=== PATIENT | female | born 1950 | race Caucasian/White ===

== ENCOUNTER 2017-08-13 06:04 | Day surgery (SDC) | payer MEDICARE, OTHER ==
[2017-08-13] MEDS ORDERED: DIPRIVAN 200 MG/20 ML IV ONE (06:05)
[2017-08-13] MEDS ORDERED: Ketamine HCl 50 MG/ML IV ONE (06:05)
[2017-08-13] MEDS ORDERED: Lactated Ringers 1,000 ML IV SCH (06:30)
--- NOTE | 2017-08-13 07:57 | OP ---
SURGERY DATE/TIME: 08/13/2017 0725 PREOPERATIVE DIAGNOSIS: Diarrhea. POSTOPERATIVE DIAGNOSIS: Normal colon. PROCEDURE: Colonoscopy. SURGEON: Dr. Burden. ANESTHESIA: MAC. Medications given by anesthesia department. HISTORY: The patient is a 66 year-old white female presenting now with complaints of diarrhea over the past few weeks. The patient reports that she initially thought she had the flu but it persisted beyond this. The patient has previously had a colonoscopy many years ago and recalls it as being normal. The patient was felt to need to have endoscopic evaluation at this point. She was appraised of the risks of the procedure including the risk of perforation, phlebitis, untoward reaction to medication, bleeding and missed lesions. The patient verbalized her understanding and desired to have the procedure performed. DESCRIPTION OF PROCEDURE: The patient was given the medications by the anesthesia department. She had continuous pulse oximetry, ECG monitoring, intermittent blood pressure monitoring and tidal CO2 monitoring during the examination. She was placed in the left lateral decubitus position. A digital rectal examination was performed and revealed normal anal sphincter tone and no masses. The flexible Olympus pediatric colonoscope was used to intubate the rectum. A view of the colon was developed sequentially to the cecum including a short distance into the terminal ileum. Upon insertion and withdrawal, including a retroflex view in the rectum, no mucosal lesions were encountered. The scope was then removed from the patient who tolerated the procedure well and was sent back to OP recovery in good condition. The prep was noted to be fair to good.
[2017-08-13 08:34] VITALS: BP 116/81; PULSE 51; O2SAT 95
== END 2017-08-13 08:47 | disposition home or self-care (01) ==
LOC: SDC 06:04
PROVIDERS: ATTEND Family Medicine
PROC: 0DJD8ZZ Inspection of Lower Intestinal Tract, Via Natural or Artificial Opening Endoscopic (ICD-10-PCS; principal; 2017-08-13)
DX: R19.7 Diarrhea, unspecified (principal)
CPT/HCPCS: 00810; J2704

== ENCOUNTER 2021-04-02 13:03 | Emergency (ER) | payer MEDICARE, OTHER ==
--- NOTE | 2021-04-02 13:17 | ERPHSYRPT ---
- History of Present Illness Time Seen by Provider: 04/02/21 13:15 Historian: patient Exam Limitations: no limitations Physician History: This is a 70-year-old white female who has a history of diabetes and presents with abdominal pain that is generalized in location but has the point of maximal tenderness in the left lower quadrant. She has had no nausea vomiting or diarrhea. She denies shortness of breath. She denies chest pain. She has not had any fevers or chills. Patient states she is never had anything like this before. Patient had a "clean" colonoscopy within the last few years. She has no history of diverticular disease per her report. Patient has had an appendectomy and cholecystectomy in the past. Timing/Duration: day(s) (2 days), worse Abdominal Pain Onset Location: LLQ (Point of maximal tenderness), generalized abdomen Pain Radiation: no radiation Severity of Pain-Max: moderate Severity of Pain-Current: moderate Modifying Factors: Improves With: nothing Associated Symptoms: denies symptoms Previous symptoms: no prior history Allergies/Adverse Reactions: oxytetracycline [From Terramycin] Allergy (Intermediate, Verified 04/02/21 13:22) Hives Home Medications: Clopidogrel Bisulfate 75 mg [PLAVIX 75 MG Tablet] 75 mg PO DAILY 08/09/17 [History] Losartan Potassium [Cozaar] 100 mg PO DAILY 08/09/17 [History] Metoprolol Tartrate 25 mg [Lopressor 25MG Tab] 75 mg PO BID 08/09/17 [History] Pravastatin Sodium 40 mg PO DAILY 08/09/17 [History] Alendronate Sodium 70 mg [Fosamax 70 MG] 70 mg PO Q7D@0600 04/02/21 [History] Ezetimibe 10 mg [Zetia 10 MG] 10 mg PO DAILY 04/02/21 [History] Levothyroxine Sodium [Euthyrox] 125 mcg PO DAILY 04/02/21 [History] Metformin HCl Xr 500 mg [Glucophage XR 500 MG] 500 mg PO DAILY 04/02/21 [History] Hx Tetanus, Diphtheria Vaccination/Date Given: Yes Hx Influenza Vaccination/Date Given: No Hx Pneumococcal Vaccination/Date Given: No Travel Risk - International Travel Have you traveled outside of the country in past 3 weeks: No - Coronavirus Screening Are you exhibiting any of the following symptoms?: No Close contact with a COVID-19 positive Pt in past 14-21 Days: No - Review of Systems Constitutional: No Symptoms Eyes: No Symptoms Ears, Nose, & Throat: No Symptoms Respiratory: No Symptoms Cardiac: No Symptoms Abdominal/Gastrointestinal: Abdominal Pain, No Nausea, No Vomiting, No Diarrhea Genitourinary Symptoms: No Symptoms Musculoskeletal: No Symptoms Skin: No Symptoms Neurological: No Symptoms Psychological: No Symptoms Endocrine: No Symptoms Hematologic/Lymphatic: No Symptoms Immunological/Allergic: No Symptoms All Other Systems: Reviewed and Negative - Past Medical History Pertinent Past Medical History: Yes Neurological History: Stroke ENT History: No Pertinent History Cardiac History: Aneurysm, Hypertension Respiratory History: Other Endocrine Medical History: No Pertinent History Musculoskeletal History: No Pertinent History GI Medical History: Hernia History: No Pertinent History Psycho-Social History: No Pertinent History Female Reproductive Disorders: Breast Cancer - Past Surgical History Past Surgical History: Yes Neuro Surgical History: No Pertinent History Cardiac: Cardiac Catheterization Respiratory: No Pertinent History Gastrointestinal: Appendectomy, Cholecystectomy Genitourinary: No Pertinent History Musculoskeletal: Other Female Surgical History: Mastectomy Other Surgical History: t and a, three hand surgeries - Social History Smoking Status: Never smoker Exposure to second hand smoke: No Drug Use: none Patient Lives Alone: No - Nursing Vital Signs Nursing Vital Signs: Initial Vital Signs Temperature 97.6 F 04/02/21 13:09 Pulse Rate 71 04/02/21 13:09 Blood Pressure 124/76 04/02/21 13:09 O2 Sat by Pulse Oximetry 93 L 04/02/21 13:09 Pain Scale Pain Intensity 4 - Physical Exam General Appearance: mild distress, alert, anxiety Eye Exam: PERRL/EOMI, eyes nml inspection Ears, Nose, Throat Exam: normal ENT inspection, moist mucous membranes Neck Exam: normal inspection, non-tender, supple, full range of motion Respiratory Exam: normal breath sounds, lungs clear, airway intact, No chest tenderness, No respiratory distress Cardiovascular Exam: regular rate/rhythm, normal heart sounds, normal peripheral pulses Gastrointestinal/Abdomen Exam: soft, normal bowel sounds, tenderness (Generalized. However there is point of maximal tenderness in the left lower quadrant), guarding (Left lower quadrant), No pulsatile mass Pelvic Exam: not done Rectal Exam: not done Back Exam: normal inspection, normal range of motion, No CVA tenderness, No vertebral tenderness Extremity Exam: normal inspection, normal range of motion, pelvis stable Neurologic Exam: alert, oriented x 3, cooperative, clutch mechanic II-XII nml as tested, normal mood/affect, nml cerebellar function, nml station & gait, sensation nml Skin Exam: normal color, warm, dry Lymphatic Exam: No adenopathy SpO2 Interpretation: normal O2 Delivery: Room Air - Course Nursing assessment & vital signs reviewed: Yes Ordered Tests: Active Orders 24 hr Category Date Time Status IV Insertion STAT Care 04/02/21 13:35 Active ABDOMEN AND PELVIS W/0 CONTRAS [CT] Stat Exams 04/02/21 13:39 Taken AMYLASE Stat Lab 04/02/21 13:47 Completed CBC W DIFF Stat Lab 04/02/21 13:47 Completed CMP Stat Lab 04/02/21 13:47 Completed LIPASE Stat Lab 04/02/21 13:47 Completed Lactic Acid Stat Lab 04/02/21 13:47 Completed UA W/RFX UR CULTURE Stat Lab 04/02/21 13:39 Ordered Medication Summary Discontinued Medications Generic Name Dose Route Start Last Admin Trade Name Freq PRN Reason Stop Dose Admin Hydromorphone HCl 1 mg 04/02/21 13:35 04/02/21 13:47 Hydromorphone 1 Mg/Ml Injection IV 04/02/21 13:36 1 mg STAT ONE Administration Hydromorphone HCl Confirm 04/02/21 13:46 Hydromorphone 1 Mg/Ml Injection Administered 04/02/21 13:47 Dose 1 mg .ROUTE .STK-MED ONE Ondansetron HCl 4 mg 04/02/21 13:35 04/02/21 13:47 Zofran 4 Mg/2 Ml Vial IV 04/02/21 13:36 4 mg STAT ONE Administration Ondansetron HCl Confirm 04/02/21 13:45 Zofran 4 Mg/2 Ml Vial Administered 04/02/21 13:46 Dose 4 mg .ROUTE .STK-MED ONE Lab/Rad Data: Laboratory Result Diagrams 04/02/21 13:47 04/02/21 13:47 Laboratory Results 04/02/21 04/02/21 04/02/21 Range/Units 13:47 13:47 13:47 WBC 12.1 H (4.0-10.5) K/mm3 RBC 4.54 (4.1-5.4) M/mm3 Hgb 13.6 (12.0-16.0) gm/dl Hct 41.5 (35-47) % MCV 91.4 (78-100) fl MCH 30.0 (26-32) pg MCHC 32.8 (32-36) g/dl RDW 14.0 (11.5-14.0) % Plt Count 303 (150-450) K/mm3 MPV 9.2 (7.5-11.0) fl Gran % 73.0 H (36.0-66.0) % Eos # (Auto) 0.06 (0-0.5) Absolute Lymphs (auto) 2.11 (1.0-4.6) Absolute Monos (auto) 1.06 (0.0-1.3) Lymphocytes % 17.5 L (24.0-44.0) % Monocytes % 8.8 (0.0-12.0) % Eosinophils % 0.5 (0.00-5.0) % Basophils % 0.2 (0.0-0.4) % Absolute Granulocytes 8.84 H (1.4-6.9) Basophils # 0.02 (0-0.4) Sodium 136 L (137-145) mmol/L Potassium 4.0 (3.5-5.1) mmol/L Chloride 99 (98-107) mmol/L Carbon Dioxide 29 (22-30) mmol/L Anion Gap 12.6 (5-15) MEQ/L BUN 15 (7-17) mg/dL Creatinine 0.78 (0.52-1.04) mg/dL Estimated GFR > 60.0 ML/MIN Glucose 102 (74-106) mg/dL Lactic Acid 1.1 (0.4-2.0) Calcium 9.3 (8.4-10.2) mg/dL Total Bilirubin 0.80 (0.2-1.3) mg/dL AST 28 (14-36) U/L ALT 18 (0-35) U/L Alkaline Phosphatase 62 (38-126) U/L Serum Total Protein 7.1 (6.3-8.2) g/dL Albumin 4.1 (3.5-5.0) g/dL Amylase 65 (30-110) U/L Lipase 175 (23-300) U/L - Progress Progress: improved, pain not gone completely, re-examined Progress Note: 04/02/21 15:31 CAT scan of the abdomen pelvis without contrast shows proximal sigmoid diverticulitis without evidence of perforation or abscess. Counseled pt/family regarding: lab results, diagnosis, need for follow-up, rad results - Departure Departure Disposition: Home Clinical Impression: Acute diverticulitis Condition: Stable Critical Care Time: No Referrals: RIANNA VILLATORO [Primary Care Provider] - Additional Instructions: Drink plenty of fluids. Take your medication as prescribed. Return to the emergency department if your symptoms worsen. Follow-up with your primary care physician for further management. Prescriptions: Hydrocodone/APAP 5/325 [Hull 5/325 mg] 1 each PO Q8H PRN PRN #10 tablet MDD 3 PRN Reason: Pain Ciprofloxacin [Cipro 500 MG] 500 mg PO BID #14 tablet Metronidazole 500 mg [Flagyl 500 MG] 500 mg PO TID #21 tablet
[2021-04-02] MEDS ORDERED: Zofran 4 MG/2 ML VIAL ONE (13:45)
[2021-04-02] MEDS ORDERED: Hydromorphone 1 mg/ml Injection ONE (13:46)
[2021-04-02] MEDS: Zofran 4 MG/2 ML VIAL IV ONE (13:47)
[2021-04-02] MEDS: Hydromorphone 1 mg/ml Injection IV ONE (13:47)
[2021-04-02 13:52] LABS: Absolute Neutrophil Ct (ANC) 8.84 (1.4-6.9); BASOPHIL % 0.2 % (0.0-0.4); Basophil (Absolute #) 0.02 (0-0.4); Eosinophil % 0.5 % (0.00-5.0); Eosinophil (Absolute #) 0.06 (0-0.5); Hematocrit 41.5 % (35-47); Hemoglobin 13.6 gm/dl (12.0-16.0); Lymphocyte (Absolute #) 2.11 (1.0-4.6); Lymphocytes % 17.5 % (24.0-44.0); Mean Cell Volume 91.4 fl (78-100); Mean Corpuscular Hgb Concent. 32.8 g/dl (32-36); Mean Platelet Volume 9.2 fl (7.5-11.0); Monocyte (Absolute #) 1.06 (0.0-1.3); Monocytes % 8.8 % (0.0-12.0); Platelet Count 303 K/mm3 (150-450); Red Blood Count 4.54 M/mm3 (4.1-5.4); White Blood Count 12.1 K/mm3 (4.0-10.5)
[2021-04-02 14:05] LABS: ALBUMIN 4.1 g/dL (3.5-5.0); ALKALINE PHOSPHATASE 62 U/L (38-126); AMYLASE 65 U/L (30-110); ANION GAP 12.6 MEQ/L (5-15); BLOOD UREA NITROGEN 15 mg/dL (7-17); CHLORIDE 99 mmol/L (98-107); Calcium 9.3 mg/dL (8.4-10.2); Carbon Dioxide 29 mmol/L (22-30); Creatinine 1 0.78 mg/dL (0.52-1.04); EST GLOMERULAR FILTRATION RATE > 60.0 ML/MIN; Glucose 102 mg/dL (74-106); LIPASE 175 U/L (23-300); SGOT/AST 28 U/L (14-36); SGPT/ALT 18 U/L (0-35); SODIUM 136 mmol/L (137-145); Total Protein 7.1 g/dL (6.3-8.2)
[2021-04-02] MEDS ORDERED: Levofloxacin 500 MG Tablet ONE (15:39)
[2021-04-02] MEDS ORDERED: Flagyl 500 MG ONE (15:40)
[2021-04-02] MEDS: Flagyl 500 MG PO ONE (15:42)
[2021-04-02] MEDS: Levofloxacin 500 MG Tablet PO ONE (15:43)
[2021-04-02 16:25] VITALS: BP 128/70; PULSE 70; O2SAT 98
--- NOTE | 2021-04-02 20:06 | XRAY ---
Indication: Abdomen pain. Multiple contiguous axial images obtained through the abdomen and pelvis without contrast. Comparison: None Lung bases demonstrates bibasilar dependent atelectasis/scarring, 3 mm left base calcified granuloma, and 3 mm right lower lobe subpleural noncalcified nodule probably granulomatous. No infiltrate or effusion. Heart not enlarged with tiny pericardial effusion/thickening. Noncontrasted stomach and bowel loops are nonobstructed. Previous appendectomy and cholecystectomy. Mild sigmoid diverticulosis with mild proximal sigmoid diverticulitis. No free fluid/air. 6 mm nonobstructing left renal calculus. Remaining liver, pancreas, spleen, adrenal glands, kidneys, ureters, bladder, and uterus unremarkable for noncontrast exam. Mild scattered aortoiliac calcifications without AAA. Osseous structures intact with mild degenerative changes throughout the thoracolumbar spine. Impression: 1. Sigmoid diverticulosis with mild proximal sigmoid diverticulitis. No complications. 2. Incidental nonobstructing left renal calculus, chronic bony findings, and bibasilar calcified/noncalcified granulomas. Comment: Preliminary interpretation was made by [facility]. No critical discrepancy.
== END 2021-04-02 16:26 | disposition critical access hospital (66) ==
LOC: ED 13:03
DX: K57.92 Diverticulitis of intestine, part unspecified, without perforation or abscess without bleeding (principal); I10 Essential (primary) hypertension; Z79.899 Other long term (current) drug therapy
CPT/HCPCS: 36000; 36415; 74176; 80053; 82150; 83605; 83690; 85025; 96374; 96375; 99284; J1170; J2405; A9270-GY

== ENCOUNTER 2024-09-24 11:06 | Emergency (ER) | payer MEDICARE, OTHER ==
[2024-09-24 11:20] VITALS: TEMP 97.9
[2024-09-24] MEDS ORDERED: BACIGUENT PACKET ONE (11:27)
[2024-09-24] MEDS ORDERED: Sodium Chloride 0.9% 1000 ML 1,000 ML ONE (11:46)
--- NOTE | 2024-09-24 11:46 | ERPHSYRPT ---
- History of Present Illness Time Seen by Provider: 09/24/24 11:14 Source: patient Exam Limitations: no limitations Patient Subjective Stated Complaint: Nose bleed Triage Nursing Assessment: Patient ambulated back to ED and transferred self to bed. Patient A+O X 3. Patient's skin pale, warm and dry. Patient is having active nose bleed out of junaid nares. Patient has tampon placed in left nare with blood oozing out of left nare and right nare. tampon removed with large clot coming out of left nare. Patient complains of headache 02/28. Patient states she had an appt with ENT today, but cancelled it. Physician History: 73 years old female with history of hypertension, stroke on Plavix having epistaxis off-and-on with the last 1 5 days ago, has appointment with ENT this afternoon which she canceled because she started bleeding from left side almost half an hour prior to arrival. Patient reports bright red blood and put a tampon with minimal relief. Patient reported initially blood was going back into her throat but not currently. Denies feeling dizzy lightheaded. Not taking any blood thinners. Patient has slow oozing of blood from left anterior. All the clots are removed, packed with Rhino Rocket. Will start her on Augmentin for prophylaxis. We have called her primary ENT Dr. Turner office who recommended keeping Rhino Rocket until Sunday and outpatient follow-up on Sunday morning. Plan discussed with patient and family which they understand and agree. After putting Rhino Rocket patient had some vasovagal effect with bradycardia and hypotension, feeling sweaty. She was placed in Trendelenburg position and her vitals improved. No chest pain palpitations or shortness of breath. I have checked her hemoglobin and it is 10.4 which is actually improved from previous around 9. Patient is currently asymptomatic. Discussed signs symptoms of worsening needing return to ER which she seems un derstanding. Stable for discharge. Allergies/Adverse Reactions: oxytetracycline [From Terramycin] Allergy (Intermediate, Verified 09/24/24 11:14) Hives Home Medications: Clopidogrel Bisulfate [PLAVIX Tablet] 75 mg PO DAILY 08/09/17 [History] Losartan Potassium [Cozaar] 100 mg PO DAILY 08/09/17 [History] Metoprolol Tartrate 25 mg [Lopressor 25MG Tab] 75 mg PO BID 08/09/17 [History] Pravastatin Sodium 40 mg PO DAILY 08/09/17 [History] Alendronate Sodium 70 mg [Fosamax 70 MG] 70 mg PO Q7D@0600 04/02/21 [History] Ezetimibe 10 mg [Zetia 10 MG] 10 mg PO DAILY 04/02/21 [History] Levothyroxine Sodium [Euthyrox] 125 mcg PO DAILY 04/02/21 [History] Metformin HCl Xr 500 mg [Glucophage XR 500 MG] 500 mg PO DAILY 04/02/21 [History] Hx Tetanus, Diphtheria Vaccination/Date Given: Yes Hx Influenza Vaccination/Date Given: Yes Hx Pneumococcal Vaccination/Date Given: No Immunizations Up to Date: Yes Travel Risk - International Travel Have you traveled outside of the country in past 3 weeks: No - Emerging Infectious Disease Are you exhibiting symptoms associated with any current EIDs: No - Review of Systems Constitutional: No Symptoms Eyes: No Symptoms Ears, Nose, & Throat: Nose Pain, Nose Congestion Respiratory: No Symptoms Cardiac: No Symptoms Genitourinary Symptoms: No Symptoms Skin: No Symptoms Neurological: No Symptoms Hematologic/Lymphatic: Easy Bleeding - Past Medical History Pertinent Past Medical History: Yes Neurological History: Stroke ENT History: No Pertinent History Cardiac History: Aneurysm, Hypertension Respiratory History: Other Endocrine Medical History: No Pertinent History, Thyroid Cancer Musculoskeletal History: Arthritis GI Medical History: Hernia History: No Pertinent History Psycho-Social History: No Pertinent History Female Reproductive Disorders: Breast Cancer Other Medical History: Thyroid removed due to CA. Breast CA in 1988 - Past Surgical History Past Surgical History: Yes Neuro Surgical History: No Pertinent History Cardiac: Cardiac Catheterization Respiratory: No Pertinent History Gastrointestinal: Appendectomy, Cholecystectomy Genitourinary: No Pertinent History Musculoskeletal: Other Female Surgical History: Mastectomy Other Surgical History: t and a, three hand surgeries - Social History Smoking Status: Never smoker Exposure to second hand smoke: No Drug Use: none Patient Lives Alone: No - Social Determinants of Health Will the patient participate in the screening: Yes Do you worry about a steady place to live?: No Do you have any problems with any of the following?: No known problems In the past 12 months,have you had to go without utilities?: No Transportation Issues: No Has anyone in your support network made you feel unsafe?: No Have you or anyone in your house had to go without enough: No - Nursing Vital Signs Nursing Vital Signs: Initial Vital Signs Pulse Rate 72 09/24/24 11:13 Respiratory Rate 16 09/24/24 11:13 Blood Pressure 115/84 09/24/24 11:13 O2 Sat by Pulse Oximetry 91 L 09/24/24 11:13 Pain Scale Pain Intensity 5 - Physical Exam General Appearance: no apparent distress, alert Eye Exam: bilateral eye: normal inspection, PERRL, EOMI Ear Exam: bilateral ear: auricle normal, canal normal, TM normal Nasal Exam: No normal inspection (Left nasal bleed) Throat Exam: normal, pharynx normal Neck Exam: normal inspection, supple, full range of motion Cardiovascular/Respiratory Exam: normal breath sounds, regular rate/rhythm Neurologic Exam: alert, oriented x 3, cooperative, development trainer II-XII nml as tested, normal mood/affect, nml cerebellar function, No motor deficits, No sensory deficit, No agitation Skin Exam: normal color SpO2 Interpretation: normal SpO2: 95 O2 Delivery: Room Air Procedures - Additional Procedures Progress: Nasal bleed. Time 11:30 AM. Left Rhino Rocket placement with 7 cc air injection. Bleeding improved. Ordered Tests: Active Orders 24 hr Category Date Time Status CBC W DIFF Stat Lab 09/24/24 12:26 Completed Medication Summary Discontinued Medications Generic Name Dose Route Start Last Admin Trade Name Freq PRN Reason Stop Dose Admin Bacitracin Zinc Confirm 09/24/24 11:27 Bacitracin Packet 1 Each Pckt Administered 09/24/24 11:28 Dose 1 each .ROUTE .STK-MED ONE Bacitracin Zinc 0.9 each 09/24/24 11:58 09/24/24 11:59 Bacitracin Packet 1 Each Pckt TP 09/24/24 11:59 0.9 each STAT ONE Administration Sodium Chloride Confirm 09/24/24 11:46 Sodium Chloride 0.9% 1000 Ml Administered 09/24/24 11:47 Dose 1,000 mls @ ud .ROUTE .STK-MED ONE Sodium Chloride 1,000 mls @ 999 mls/hr 09/24/24 11:58 09/24/24 12:00 Sodium Chloride 0.9% 1000 Ml IV 09/24/24 12:58 999 mls/hr .Q1H1M STA Administration Lab/Rad Data: Laboratory Result Diagrams 09/24/24 12:26 Laboratory Results 09/24/24 Range/Units 12:26 WBC 8.1 (3.98-10.04) x10^3/uL RBC 3.51 L (3.93-5.22) x10^6/uL Hgb 10.4 L (11.2-15.7) g/dL Hct 32.8 L (34.1-44.9) % MCV 93.4 (79.4-94.8) fL MCH 29.6 (25.6-32.2) pg MCHC 31.7 L (32.2-35.5) g/dL RDW 13.4 (11.7-14.4) % Plt Count 323 (182-369) x10^3/uL MPV 9.5 (9.4-12.3) fL Gran % 69.7 (34.0-71.1) % Immature Gran % (Auto) 0.2 (0.001-0.429) % Nucleat RBC Rel Count 0.0 (0.00-0.2) % Eos # (Auto) 0.09 (0.04-0.36) x10^3/uL Immature Gran # (Auto) 0.02 (0.001-0.031) x10^3u/L Absolute Lymphs (auto) 1.83 (1.18-3.74) x10^3/uL Absolute Monos (auto) 0.51 (0.24-0.86) x10^3/uL Absolute Nucleated RBC 0.00 (0.00-0.012) x10^3u/L Lymphocytes % 22.5 (19.3-51.7) % Monocytes % 6.3 (4.7-12.5) % Eosinophils % 1.1 (0.7-5.8) % Basophils % 0.2 (0.1-1.2) % Absolute Granulocytes 5.67 (1.56-6.13) x10^3/uL Basophils # 0.02 (0.01-0.08) x10^3/uL - Progress Progress: improved, re-examined Progress Note: 09/24/24 13:21 73 years old female with history of hypertension, stroke on Plavix having epistaxis off-and-on with the last 1 5 days ago, has appointment with ENT this afternoon which she canceled because she started bleeding from left side almost half an hour prior to arrival. Patient reports bright red blood and put a tampon with minimal relief. Patient reported initially blood was going back int o her throat but not currently. Denies feeling dizzy lightheaded. Not taking any blood thinners. Patient has slow oozing of blood from left anterior. All the clots are removed, packed with Rhino Rocket. Will start her on Augmentin for prophylaxis. We have called her primary ENT Dr. Turner office who recommended keeping Rhino Rocket until Sunday and outpatient follow-up on Sunday morning. Plan discussed with patient and family which they understand and agree. After putting Rhino Rocket patient had some vasovagal effect with bradycardia and hypotension, feeling sweaty. She was placed in Trendelenburg position and her vitals improved. No chest pain palpitations or shortness of breath. I have checked her hemoglobin and it is 10.4 which is actually improved from previous around 9. Patient is currently asymptomatic. Discussed signs symptoms of worsening needing return to ER which she seems understanding. Stable for discharge. Counseled pt/family regarding: diagnosis, need for follow-up Medical Desision Making - Discussion of managment Care discussed with:: specialist (Dr. Salamanca ENT) Reviewed:: Test results Agreed on:: Treatment plan, need for follow-up Will see patient: In office - Diagnostic Testing Diagnostic test were ordered, analyzed, and reviewed by me: No - Risk of complications The pt has a mod risk of morbidity or mortality based on: Need for minor surgical intervention in patient with know risk factors - Departure Departure Disposition: Home Clinical Impression: Left-sided epistaxis, Vasovagal episode Condition: Stable Critical Care Time: No Referrals: RIANNA VILLATORO [Primary Care Provider] - Follow up with PCP 1 day GINNA SALAMNACA MD [NON-STAFF PHY W/O PRIVILEGES] - Follow up/PCP as directed (On Sunday for reevaluation) Instructions: Nosebleeds (DC), Vasovagal Response Additional Instructions: Monitor your blood pressure regularly. Follow-up with ENT for reevaluation. Return to ER for worsening of pain, bleeding, intractable headache, numbness tingling focal weakness, feeling dizzy lightheaded, chest pain/shortness of breath etc. Prescriptions: Amox Tr/Potass Clav. 875 mg [Augmentin 875-125 Tablet] 875 mg PO BID 5 Days #10 tablet
[2024-09-24] MEDS: BACIGUENT PACKET TP ONE (11:59)
[2024-09-24] MEDS: Sodium Chloride 0.9% 1000 ML 1,000 ML IV STA (12:00)
[2024-09-24 12:27] LABS: Absolute Neutrophil Ct (ANC) 5.67 x10^3/uL (1.56-6.13); BASOPHIL % 0.2 % (0.1-1.2); Basophil (Absolute #) 0.02 x10^3/uL (0.01-0.08); Eosinophil % 1.1 % (0.7-5.8); Eosinophil (Absolute #) 0.09 x10^3/uL (0.04-0.36); Hematocrit 32.8 % (34.1-44.9); Hemoglobin 10.4 g/dL (11.2-15.7); IMMATURE GRAN # 0.02 x10^3u/L (0.001-0.031); IMMATURE GRAN % 0.2 % (0.001-0.429); Lymphocyte (Absolute #) 1.83 x10^3/uL (1.18-3.74); Lymphocytes % 22.5 % (19.3-51.7); Mean Cell Volume 93.4 fL (79.4-94.8); Mean Corpuscular Hemoglobin 29.6 pg (25.6-32.2); Mean Corpuscular Hgb Concent. 31.7 g/dL (32.2-35.5); Mean Platelet Volume 9.5 fL (9.4-12.3); Monocyte (Absolute #) 0.51 x10^3/uL (0.24-0.86); Monocytes % 6.3 % (4.7-12.5); Neutrophil % 69.7 % (34.0-71.1); Platelet Count 323 x10^3/uL (182-369); Red Blood Count 3.51 x10^6/uL (3.93-5.22); Red Cell Distribution Width 13.4 % (11.7-14.4); White Blood Count 8.1 x10^3/uL (3.98-10.04)
[2024-09-24 12:50] VITALS: RESP 18
[2024-09-24 13:39] VITALS: BP 104/64; PULSE 72; O2SAT 96
== END 2024-09-24 13:47 | disposition home or self-care (01) ==
LOC: ED 11:06
DX: R04.0 Epistaxis (principal); R51.9 Headache, unspecified; Z79.01 Long term (current) use of anticoagulants; R55 Syncope and collapse
CPT/HCPCS: 36415; 85025; 96360; 99284; A9270-GY

== ENCOUNTER 2024-09-26 13:15 | Observation (INO) | payer MEDICARE, OTHER ==
--- NOTE | 2024-09-26 13:21 | ERPHSYRPT ---
- History of Present Illness Source: patient, family Exam Limitations: no limitations Timing/Duration: today Severity: mild Associated Symptoms: shortness of breath, chest pain (Mild ache substernal central without radiation) Hx Tetanus, Diphtheria Vaccination/Date Given: Yes Hx Influenza Vaccination/Date Given: Yes Hx Pneumococcal Vaccination/Date Given: No <HANK BAXTER - Last Filed: 09/26/24 19:17> <HECTOR BOSS - Last Filed: 09/27/24 06:18> - History of Present Illness Time Seen by Provider: 09/26/24 13:21 Physician History: This is a 73-year-old overweight white female patient of Dr. Burden who presents to the emergency department by private vehicle with a complaint of low blood pressure and mild shortness of breath. Patient was seen in our emergency department on 09/24/2024 with a complaint of epistaxis and she has a Rhino Rocket in the left nostril. Since its placement, she has not had any further bleeding. She has no hemoptysis, hematemesis, rectal bleeding, vaginal bleeding or epistaxis. She continues to take her Plavix as she states no one told her to stop it. She has a history of hyperlipidemia, hypertension, diabetes, hypothyroidism, osteoporosis and CVA. Patient was orthostatic on arrival to the emergency department. Patient has had no vomiting no diarrhea symptoms and has no abdominal pain. Patient has an appointment to see her associate research scientist, Dr. Turner, on 09/29/2024. It is documented, in the emergency room note here at [facility] on 09/24/2024, that when the Rhino Rocket was placed, patient appeared to have a vasovagal response. (HANK BAXTER) Allergies/Adverse Reactions: oxytetracycline [From Terramycin] Allergy (Intermediate, Verified 09/24/24 11:14 ) Hives Home Medications: Clopidogrel Bisulfate [PLAVIX Tablet] 75 mg PO DAILY 08/09/17 [History] Losartan Potassium [Cozaar] 100 mg PO DAILY 08/09/17 [History] Metoprolol Tartrate 25 mg [Lopressor 25MG Tab] 50 mg PO BID 08/09/17 [History] Alendronate Sodium 70 mg [Fosamax 70 MG] 70 mg PO Q7D@0600 04/02/21 [History] Ezetimibe 10 mg [Zetia 10 MG] 10 mg PO DAILY 04/02/21 [History] Atorvastatin Calcium [Lipitor] 20 mg PO DAILY 09/26/24 [History] Citalopram Hydrobromide [Celexa] 10 mg PO DAILY 09/26/24 [History] Ergocalciferol (Vitamin D2) [Vitamin D2] 1,250 mcg PO UD 09/26/24 [History] Ferrous Sulfate [Iron] 325 mg PO DAILY 09/26/24 [History] Furosemide 40 mg [Lasix 40 MG] 40 mg PO DAILY 09/26/24 [History] Levothyroxine Sodium [Synthroid] 163 mcg PO BREAKFAST 09/26/24 [History] Trazodone HCl 50 mg [Desyrel 50 mg] 50 mg PO DAILY PRN 09/26/24 [History] Travel Risk - International Travel Have you traveled outside of the country in past 3 weeks: No - Emerging Infectious Disease Are you exhibiting symptoms associated with any current EIDs: No <HANK BAXTER - Last Filed: 09/26/24 19:17> - Review of Systems Constitutional: No Symptoms Eyes: No Symptoms Ears, Nose, & Throat: No Symptoms Respiratory: Dyspnea Cardiac: Chest Pain Abdominal/Gastrointestinal: No Symptoms Genitourinary Symptoms: No Symptoms Musculoskeletal: No Symptoms Skin: No Symptoms Neurological: No Symptoms Psychological: No Symptoms Endocrine: No Symptoms Hematologic/Lymphatic: No Symptoms Immunological/Allergic: No Symptoms All Other Systems: Reviewed and Negative <HANK BAXTER - Last Filed: 09/26/24 19:17> - Past Medical History Pertinent Past Medical History: Yes Neurological History: Stroke ENT History: No Pertinent History Cardiac History: Aneurysm, Hypertension Respiratory History: Other Endocrine Medical History: No Pertinent History, Thyroid Cancer Musculoskeletal History: Arthritis GI Medical History: Hernia History: No Pertinent History Psycho-Social History: No Pertinent History Female Reproductive Disorders: Breast Cancer Other Medical History: Thyroid removed due to CA. Breast CA in 1988 - Past Surgical History Past Surgical History: Yes Neuro Surgical History: No Pertinent History Cardiac: Cardiac Catheterization Respiratory: No Pertinent History Gastrointestinal: Appendectomy, Cholecystectomy Genitourinary: No Pertinent History Musculoskeletal: Other Female Surgical History: Mastectomy Other Surgical History: t and a, three hand surgeries - Social History Smoking Status: Never smoker Exposure to second hand smoke: No Drug Use: none Patient Lives Alone: No - Social Determinants of Health Will the patient participate in the screening: Yes Do you worry about a steady place to live?: No In the past 12 months,have you had to go without utilities?: No Transportation Issues: No Has anyone in your support network made you feel unsafe?: No Have you or anyone in your house had to go without enough: No <HANK BAXTER - Last Filed: 09/26/24 19:17> - Physical Exam General Appearance: no apparent distress, alert, anxiety, obese Eye Exam: PERRL/EOMI, eyes nml inspection Ears, Nose, Throat Exam: normal ENT inspection, moist mucous membranes, other (Rhino Rocket in place left nostril. No active bleeding.) Neck Exam: normal inspection Respiratory Exam: normal breath sounds, lungs clear, airway intact, No chest tenderness, No respiratory distress Cardiovascular Exam: tachycardia Gastrointestinal/Abdomen Exam: soft, normal bowel sounds, No tenderness Pelvic Exam: not done Rectal Exam: not done Back Exam: normal inspection, normal range of motion, No CVA tenderness, No vertebral tenderness Extremity Exam: normal inspection, normal range of motion, pelvis stable Neurologic Exam: alert, oriented x 3, cooperative, recreational facilities motel manager II-XII nml as tested, nml cerebellar function, nml station & gait, sensation nml Skin Exam: normal color, warm, dry Lymphatic Exam: No adenopathy SpO2 Interpretation: normal O2 Delivery: Room Air <HANK BAXTER - Last Filed: 09/26/24 19:17> - Nursing Vital Signs Nursing Vital Signs: Initial Vital Signs Temperature 98.1 F 09/26/24 13:20 Pulse Rate 121 H 09/26/24 13:20 Respiratory Rate 23 09/26/24 13:20 Blood Pressure 149/72 09/26/24 13:20 O2 Sat by Pulse Oximetry 99 09/26/24 13:20 Pain Scale Pain Intensity 0 - Course Nursing assessment & vital signs reviewed: Yes EKG Interpreted by Me: RATE, Sinus Tach, NORMAL AXIS, NORMAL INTERVALS, NORMAL QRS, Other (No acute ischemia. QTc is 472) <HANK BAXTER - Last Filed: 09/26/24 19:17> Ordered Tests: Active Orders 24 hr Category Date Time Status Call Admit Doctor for Orders ON ADMISSION Care 09/26/24 21:50 Active Manufacturing Machine Operator STAT Care 09/26/24 13:55 Completed Code Status Order ROUTINE Care 09/26/24 21:50 Active EKG-ER Only STAT Care 09/26/24 13:55 Completed Fall Protocol Q1H Care 09/26/24 21:50 Active IV Insertion STAT Care 09/26/24 13:[address] in Observation ROUTINE Care 09/26/24 21:50 Active Pulse Oximetry (ED) STAT Care 09/26/24 13:55 Completed Telemetry q6h Care 09/26/24 21:50 Active House Regular Diet Diet 09/27/24 Breakfast Active CBC W DIFF Stat Lab 09/26/24 14:00 Completed CBC W DIFF Stat Lab 09/26/24 19:55 Completed CMP Stat Lab 09/26/24 14:00 Completed MAGNESIUM Stat Lab 09/26/24 14:00 Completed NT PRO BNPII Stat Lab 09/26/24 14:00 Completed PROTIME WITH INR Stat Lab 09/26/24 14:00 Completed TROPONIN Q4H Lab 09/26/24 14:00 Completed TROPONIN Q4H Lab 09/26/24 16:48 Completed TROPONIN Q4H Lab 09/26/24 23:25 Completed UA W/RFX UR CULTURE Stat Lab 09/26/24 16:16 Completed Medication Summary Generic Name Dose Route Start Last Admin Trade Name Freq PRN Reason Stop Dose Admin Acetaminophen 650 mg 09/27/24 00:56 Acetaminophen 325 Mg Tablet PO 10/27/24 00:55 Q6H PRN PRN PAIN AND/OR FEVER Clopidogrel Bisulfate 75 mg 09/27/24 10:00 Clopidogrel Bisulfate 75 Mg Tablet PO 10/27/24 09:59 DAILY GERHARD Ezetimibe 10 mg 09/27/24 10:00 Ezetimibe 10 Mg Tab PO 10/27/24 09:59 DAILY GERHARD Ergocalciferol unit 09/27/24 01:00 Ergocalciferol (Vitamin D2) 50,000 Unit Capsule PO 10/27/24 00:59 UD GERHARD Sodium Chloride 1,000 mls @ 100 mls/hr 09/27/24 01:00 09/27/24 03:18 Sodium Chloride 0.9% 1000 Ml IV 10/27/24 00:59 100 mls/hr .Q10H GERHARD Administration Metoprolol Tartrate 50 mg 09/27/24 10:00 Metoprolol Tartrate 25 Mg Tab PO 10/27/24 09:59 BID GERHARD Non-Formulary Medication 10 mg 09/27/24 10:00 Citalopram Hydrobromide [Celexa] PO 10/27/24 09:59 DAILY GERHARD Non-Formulary Medication 20 mg 09/27/24 10:00 Atorvastatin Calcium [Lipitor] PO 10/27/24 09:59 DAILY GERHARD Non-Formulary Medication 163 mcg 09/27/24 08:00 Levothyroxine Sodium [Synthroid] PO 10/27/24 07:59 BREAKFAST GERHARD Trazodone HCl 50 mg 09/27/24 00:55 Trazodone Hcl 50 Mg Tablet PO 10/27/24 00:54 DAILY PRN PAIN Discontinued Medications Generic Name Dose Route Start Last Admin Trade Name Freq PRN Reason Stop Dose Admin Sodium Chloride 250 mls @ 250 mls/hr 09/26/24 14:00 09/26/24 15:09 Sodium Chloride 0.9% 250 Ml IV 09/26/24 14:59 Infused .Q1H GERHARD Infusion Sodium Chloride 250 mls @ 250 mls/hr 09/26/24 15:45 09/26/24 17:08 Sodium Chloride 0.9% 250 Ml IV 09/26/24 16:44 Infused .Q1H GERHARD Infusion Sodium Chloride 1,000 mls @ 999 mls/hr 09/26/24 17:29 09/26/24 18:53 Sodium Chloride 0.9% 1000 Ml IV 09/26/24 18:29 Infused .Q1H1M STA Infusion Sodium Chloride Confirm 09/26/24 17:33 Sodium Chloride 0.9% 1000 Ml Administered 09/26/24 17:34 Dose 1,000 mls @ ud .ROUTE .STK-MED ONE Sodium Chloride Confirm 09/26/24 14:00 Sodium Chloride 0.9% 250 Ml Administered 09/26/24 14:01 Dose 250 mls @ ud IV .STK-MED ONE Sodium Chloride Confirm 09/26/24 15:52 Sodium Chloride 0.9% 250 Ml Administered 09/26/24 15:53 Dose 250 mls @ ud IV .STK-MED ONE Potassium Chloride 20 meq 09/26/24 15:37 09/26/24 15:56 Potassium Chloride Tab 10 Meq Tab PO 09/26/24 15:38 20 meq STAT ONE Administration Potassium Chloride Confirm 09/26/24 15:40 Potassium Chloride Tab 10 Meq Tab Administered 09/26/24 15:41 Dose 20 meq .ROUTE .STK-MED ONE Lab/Rad Data: Laboratory Result Diagrams 09/26/24 19:55 09/26/24 14:00 Laboratory Results 09/26/24 09/26/24 09/26/24 Range/Units 19:55 16:48 16:16 WBC 9.5 (3.98-10.04) x10^3/uL RBC 2.89 L (3.93-5.22) x10^6/uL Hgb 8.6 L (11.2-15.7) g/dL Hct 26.5 L (34.1-44.9) % MCV 91.7 (79.4-94.8) fL MCH 29.8 (25.6-32.2) pg MCHC 32.5 (32.2-35.5) g/dL RDW 14.1 (11.7-14.4) % Plt Count 261 (182-369) x10^3/uL MPV 9.3 L (9.4-12.3) fL Gran % 67.8 (34.0-71.1) % Immature Gran % (Auto) 0.3 (0.001-0.429) % Nucleat RBC Rel Count 0.0 (0.00-0.2) % Eos # (Auto) 0.10 (0.04-0.36) x10^3/uL Immature Gran # (Auto) 0.03 (0.001-0.031) x10^3u/L Absolute Lymphs (auto) 2.29 (1.18-3.74) x10^3/uL Absolute Monos (auto) 0.60 (0.24-0.86) x10^3/uL Absolute Nucleated RBC 0.00 (0.00-0.012) x10^3u/L Lymphocytes % 24.2 (19.3-51.7) % Monocytes % 6.3 (4.7-12.5) % Eosinophils % 1.1 (0.7-5.8) % Basophils % 0.3 (0.1-1.2) % Absolute Granulocytes 6.41 H (1.56-6.13) x10^3/uL Basophils # 0.03 (0.01-0.08) x10^3/uL PT (9.4-12.5) SECONDS INR (0.8-3.0) Sodium (135-145) mmol/L Potassium (3.5-5.1) mmol/L Chloride (98-107) mmol/L Carbon Dioxide (22-30) mmol/L Anion Gap (5-15) MEQ/L BUN (7-17) mg/dL Creatinine (0.52-1.04) mg/dL Estimated GFR ML/MIN Glucose (74-106) mg/dL Calcium (8.4-10.2) mg/dL Magnesium (1.6-2.3) mg/dL Total Bilirubin (0.2-1.3) mg/dL AST (14-36) U/L ALT (0-35) U/L Alkaline Phosphatase (38-126) U/L Troponin I 0.013 (0.000-0.033) ng/mL NT-Pro-B Natriuret Pep (<300) pg/mL Serum Total Protein (6.3-8.2) g/dL Albumin (3.5-5.0) g/dL Urine Color Yellow (Yellow) Urine Appearance Clear (Clear) Urine pH 7.0 (4.6-8.0) Ur Specific [place] 1.015 (1.005-1.030) Urine Protein Negative (Negative) Urine Glucose (UA) Negative (Negative) mg/dL Urine Ketones Negative (Negative) Urine Blood Negative (Negative) Urine Nitrite Negative (Negative) Urine Bilirubin Negative (Negative) Urine Urobilinogen 0.2 (0.2) mg/dL Ur Leukocyte Esterase Negative (Negative) U Hyaline Cast (Auto) NONE SEEN (0-2) /LPF Urine Microscopic RBC 0-2 (0-5) /HPF Urine Microscopic WBC 0-2 (0-5) /HPF Ur Epithelial Cells None Seen (None Seen) /HPF Urine Bacteria None Seen (None Seen) /HPF Urine Culture Reflexed NO (NO) 09/26/24 09/26/24 09/26/24 Range/Units 14:00 14:00 14:00 WBC (3.98-10.04) x10^3/uL RBC (3.93-5.22) x10^6/uL Hgb (11.2-15.7) g/dL Hct (34.1-44.9) % MCV (79.4-94.8) fL MCH (25.6-32.2) pg MCHC (32.2-35.5) g/dL RDW (11.7-14.4) % Plt Count (182-369) x10^3/uL MPV (9.4-12.3) fL Gran % (34.0-71.1) % Immature Gran % (Auto) (0.001-0.429) % Nucleat RBC Rel Count (0.00-0.2) % Eos # (Auto) (0.04-0.36) x10^3/uL Immature Gran # (Auto) (0.001-0.031) x10^3u/L Absolute Lymphs (auto) (1.18-3.74) x10^3/uL Absolute Monos (auto) (0.24-0.86) x10^3/uL Absolute Nucleated RBC (0.00-0.012) x10^3u/L Lymphocytes % (19.3-51.7) % Monocytes % (4.7-12.5) % Eosinophils % (0.7-5.8) % Basophils % (0.1-1.2) % Absolute Granulocytes (1.56-6.13) x10^3/uL Basophils # (0.01-0.08) x10^3/uL PT 10.6 (9.4-12.5) SECONDS INR 0.97 (0.8-3.0) Sodium 140 (135-145) mmol/L Potassium 3.3 L (3.5-5.1) mmol/L Chloride 102 (98-107) mmol/L Carbon Dioxide 30 (22-30) mmol/L Anion Gap 11.0 (5-15) MEQ/L BUN 19 H (7-17) mg/dL Creatinine 0.94 (0.52-1.04) mg/dL Estimated GFR 64.1 ML/MIN Glucose 91 (74-106) mg/dL Calcium 9.2 (8.4-10.2) mg/dL Magnesium 1.6 (1.6-2.3) mg/dL Total Bilirubin 0.30 (0.2-1.3) mg/dL AST 37 H (14-36) U/L ALT 22 (0-35) U/L Alkaline Phosphatase 56 (38-126) U/L Troponin I 0.014 (0.000-0.033) ng/mL NT-Pro-B Natriuret Pep 203 (<300) pg/mL Serum Total Protein 6.5 (6.3-8.2) g/dL Albumin 3.8 (3.5-5.0) g/dL Urine Color (Yellow) Urine Appearance (Clear) Urine pH (4.6-8.0) Ur Specific [place] (1.005-1.030) Urine Protein (Negative) Urine Glucose (UA) (Negative) mg/dL Urine Ketones (Negative) Urine Blood (Negative) Urine Nitrite (Negative) Urine Bilirubin (Negative) Urine Urobilinogen (0.2) mg/dL Ur Leukocyte Esterase (Negative) U Hyaline Cast (Auto) (0-2) /LPF Urine Microscopic RBC (0-5) /HPF Urine Microscopic WBC (0-5) /HPF Ur Epithelial Cells (None Seen) /HPF Urine Bacteria (None Seen) /HPF Urine Culture Reflexed (NO) 09/26/24 Range/Units 14:00 WBC 8.7 (3.98-10.04) x10^3/uL RBC 3.19 L (3.93-5.22) x10^6/uL Hgb 9.4 L (11.2-15.7) g/dL Hct 29.4 L (34.1-44.9) % MCV 92.2 (79.4-94.8) fL MCH 29.5 (25.6-32.2) pg MCHC 32.0 L (32.2-35.5) g/dL RDW 13.8 (11.7-14.4) % Plt Count 293 (182-369) x10^3/uL MPV 9.3 L (9.4-12.3) fL Gran % 69.6 (34.0-71.1) % Immature Gran % (Auto) 0.5 H (0.001-0.429) % Nucleat RBC Rel Count 0.0 (0.00-0.2) % Eos # (Auto) 0.07 (0.04-0.36) x10^3/uL Immature Gran # (Auto) 0.04 H (0.001-0.031) x10^3u/L Absolute Lymphs (auto) 1.84 (1.18-3.74) x10^3/uL Absolute Monos (auto) 0.67 (0.24-0.86) x10^3/uL Absolute Nucleated RBC 0.00 (0.00-0.012) x10^3u/L Lymphocytes % 21.1 (19.3-51.7) % Monocytes % 7.7 (4.7-12.5) % Eosinophils % 0.8 (0.7-5.8) % Basophils % 0.3 (0.1-1.2) % Absolute Granulocytes 6.06 (1.56-6.13) x10^3/uL Basophils # 0.03 (0.01-0.08) x10^3/uL PT (9.4-12.5) SECONDS INR (0.8-3.0) Sodium (135-145) mmol/L Potassium (3.5-5.1) mmol/L Chloride (98-107) mmol/L Carbon Dioxide (22-30) mmol/L Anion Gap (5-15) MEQ/L BUN (7-17) mg/dL Creatinine (0.52-1.04) mg/dL Estimated GFR ML/MIN Glucose (74-106) mg/dL Calcium (8.4-10.2) mg/dL Magnesium (1.6-2.3) mg/dL Total Bilirubin (0.2-1.3) mg/dL AST (14-36) U/L ALT (0-35) U/L Alkaline Phosphatase (38-126) U/L Troponin I (0.000-0.033) ng/mL NT-Pro-B Natriuret Pep (<300) pg/mL Serum Total Protein (6.3-8.2) g/dL Albumin (3.5-5.0) g/dL Urine Color (Yellow) Urine Appearance (Clear) Urine pH (4.6-8.0) Ur Specific [place] (1.005-1.030) Urine Protein (Negative) Urine Glucose (UA) (Negative) mg/dL Urine Ketones (Negative) Urine Blood (Negative) Urine Nitrite (Negative) Urine Bilirubin (Negative) Urine Urobilinogen (0.2) mg/dL Ur Leukocyte Esterase (Negative) U Hyaline Cast (Auto) (0-2) /LPF Urine Microscopic RBC (0-5) /HPF Urine Microscopic WBC (0-5) /HPF Ur Epithelial Cells (None Seen) /HPF Urine Bacteria (None Seen) /HPF Urine Culture Reflexed (NO) - Progress Progress: improved, re-examined Counseled pt/family regarding: lab results, diagnosis <HANK BAXTER - Last Filed: 09/26/24 19:17> - Progress Will see patient in: hospital (observation) <HECTOR BOSS - Last Filed: 09/27/24 06:18> - Progress Progress Note: 09/26/24 14:06 My medical decision making and the assignment of moderate complexity to this patient's medical issue today is based on review of the patient's past medical history, review of the patient's medication list, reviewed patient drug allergy list, history present illness and physical findings on examination. The workup in this patient includes placement of an intravenous line, CBC, CMP, PT/INR, twelve-lead EKG, troponin level. Differential diagnosis includes but is not limited to anemia, vasovagal response, dehydration, myocardial infarction, arrhythmias, electrolyte abnormalities 09/26/24 17:27 I interpreted the second twelve-lead EKG that was performed on 09/26/2024 at 1707. Heart rate is 102 bpm. There is no evidence of any acute ischemia. QTc is 458. Slightly improved heart rate compared to the prior twelve-lead EKG performed earlier in this visit. 09/26/24 17:30 Patient's repeat orthostatic vital signs, she still test positive. We have only provided her with 500 mL of normal saline solution. We will provide her with a liter of solution and repeat CBC after the liter has infused. 09/26/24 19:17 I am transferring care of this patient to Dr. Boss at shift change. I reviewed the patient history, workup results and there are pending studies after most recent intervention. He will follow-up on the studies and reevaluate the patient and make final disposition. (HANK BAXTER) Assumed care from Dr. Baxter at 1900 with CBC pending at 1930. Hb decreased from 9.4 to 8.6. Her previous Hb baseline in March was over 13, in the setting of decreasing Hb, recent epistaxis with rhinorocket placement and hypotension observation is warranted at this time. Discussed case with Dr. Freeman who accepts at 2033. (HECTOR BOSS) Medical Desision Making - Independent Historian Additional History obtained from: Family - Risk of complications Low Risk: Low risk of morbidity from additional dx testing or treatment <HANK BAXTER - Last Filed: 09/26/24 19:17> - Diagnostic Testing Diagnostic test were ordered, analyzed, and reviewed by me: Yes Radiological Interpretation: Interpreted by me - Risk of complications The pt has a high risk of morbidity or mortality based on: Decision regarding hospitilization or escalation of hosp level of care <HECTOR BOSS - Last Filed: 09/27/24 06:18> - Departure Departure Disposition: Observation Critical Care Time: No <HANK BAXTER - Last Filed: 09/26/24 19:17> - Departure Departure Disposition: Observation <HECTOR BOSS - Last Filed: 09/27/24 06:18> - Departure Clinical Impression: Anemia, Hypotension Condition: Fair
[2024-09-26] MEDS ORDERED: Sodium Chloride 0.9% 250 ML 250 ML IV ONE ×2 (14:00→15:52)
[2024-09-26 14:01] LABS: Absolute Neutrophil Ct (ANC) 6.06 x10^3/uL (1.56-6.13); BASOPHIL % 0.3 % (0.1-1.2); Basophil (Absolute #) 0.03 x10^3/uL (0.01-0.08); Eosinophil % 0.8 % (0.7-5.8); Eosinophil (Absolute #) 0.07 x10^3/uL (0.04-0.36); Hematocrit 29.4 % (34.1-44.9); Hemoglobin 9.4 g/dL (11.2-15.7); IMMATURE GRAN # 0.04 x10^3u/L (0.001-0.031); IMMATURE GRAN % 0.5 % (0.001-0.429); Lymphocyte (Absolute #) 1.84 x10^3/uL (1.18-3.74); Lymphocytes % 21.1 % (19.3-51.7); Mean Cell Volume 92.2 fL (79.4-94.8); Mean Corpuscular Hemoglobin 29.5 pg (25.6-32.2); Mean Platelet Volume 9.3 fL (9.4-12.3); Monocyte (Absolute #) 0.67 x10^3/uL (0.24-0.86); Monocytes % 7.7 % (4.7-12.5); Neutrophil % 69.6 % (34.0-71.1); Platelet Count 293 x10^3/uL (182-369); Red Blood Count 3.19 x10^6/uL (3.93-5.22); Red Cell Distribution Width 13.8 % (11.7-14.4); White Blood Count 8.7 x10^3/uL (3.98-10.04)
[2024-09-26] MEDS: Sodium Chloride 0.9% 250 ML 250 ML IV SCH ×2 (14:01→15:56)
[2024-09-26 14:14] LABS: ALBUMIN 3.8 g/dL (3.5-5.0); BILIRUBIN,TOTAL 0.3 mg/dL (0.2-1.3); Calcium 9.2 mg/dL (8.4-10.2); Creatinine 1 0.94 mg/dL (0.52-1.04); EST GLOMERULAR FILTRATION RATE 64.1 ML/MIN; MAGNESIUM 1.6 mg/dL (1.6-2.3); Potassium 3.3 mmol/L (3.5-5.1); Total Protein 6.5 g/dL (6.3-8.2)
[2024-09-26 14:16] LABS: INR 0.97 (0.8-3.0); PROTIME 10.6 SECONDS (9.4-12.5)
[2024-09-26 14:28] LABS: TROPONIN 0.014 ng/mL (0.000-0.033)
[2024-09-26] MEDS ORDERED: Klor Con ONE (15:40)
[2024-09-26] MEDS: Klor Con PO ONE (15:56)
[2024-09-26 16:40] LABS: Appearance Clear (Clear); Bacteria None Seen /HPF (None Seen); Bilirubin Negative (Negative); Blood Negative (Negative); Epithelial Cells None Seen /HPF (None Seen); Glucose, Urine Negative (Negative); Hyaline Casts NONE SEEN /LPF (0-2); Ketones Negative (Negative); Leukocyte Esterase Negative (Negative); Nitrite Negative (Negative); Protein,Urine Dip Negative (Negative); RBC 0-2 /HPF (0-5); Specific Gravity 1.015 (1.005-1.030); Urobilinogen 0.2 mg/dL (0.2); WBC 0-2 /HPF (0-5)
[2024-09-26] MEDS ORDERED: Sodium Chloride 0.9% 1000 ML 1,000 ML ONE (17:33)
[2024-09-26] MEDS: Sodium Chloride 0.9% 1000 ML 1,000 ML IV STA (17:34)
[2024-09-26 19:57] LABS: Absolute Neutrophil Ct (ANC) 6.41 x10^3/uL (1.56-6.13); BASOPHIL % 0.3 % (0.1-1.2); Basophil (Absolute #) 0.03 x10^3/uL (0.01-0.08); Eosinophil % 1.1 % (0.7-5.8); Hematocrit 26.5 % (34.1-44.9); Hemoglobin 8.6 g/dL (11.2-15.7); IMMATURE GRAN # 0.03 x10^3u/L (0.001-0.031); IMMATURE GRAN % 0.3 % (0.001-0.429); Lymphocyte (Absolute #) 2.29 x10^3/uL (1.18-3.74); Lymphocytes % 24.2 % (19.3-51.7); Mean Cell Volume 91.7 fL (79.4-94.8); Mean Corpuscular Hemoglobin 29.8 pg (25.6-32.2); Mean Corpuscular Hgb Concent. 32.5 g/dL (32.2-35.5); Mean Platelet Volume 9.3 fL (9.4-12.3); Monocytes % 6.3 % (4.7-12.5); Neutrophil % 67.8 % (34.0-71.1); Platelet Count 261 x10^3/uL (182-369); Red Blood Count 2.89 x10^6/uL (3.93-5.22); Red Cell Distribution Width 14.1 % (11.7-14.4); White Blood Count 9.5 x10^3/uL (3.98-10.04)
[2024-09-27] MEDS ORDERED: DESYREL 50 MG PO PRN (00:55)
[2024-09-27] MEDS ORDERED: TYLENOL 325 MG PO PRN (00:56)
--- NOTE | 2024-09-27 01:07 | PCM.HP ---
History of Present Illness - Chief Complaint Chief Complaint: dizziness Date: 09/26/24 History of Present Illness: is a 73 year old female with history of postsurgical hypothyroidism, stroke, hypertension, who presents with dizziness and hypotension. Patient had presented 2 days earlier to the ED with persistent epistaxis, requiring Rhino Rocket. At time of placement, patient had episode of hypotension that quickly resolved. She was cautioned to closely monitor her blood pressure at home. She denies any further epistaxis, as well as any hematemesis since leaving the ED. However, today she noted that her blood pressure was lower, and she was dizzy, and particularly upon standing. On arrival to the ED, her BP on standing was 77/48. She was given 2 L IV fluids, and now has had normalization of her blood pressure. She notes that she still has some dizziness when she stands up to walk to the bathroom. She states that she is been eating well for the past few days, and denies any vomiting or diarrhea. No recent changes to her medications. No melena or hematochezia. - Review of Systems All Other Systems: Reviewed and Negative Medications & Allergies Home Medications: Home Medication List Clopidogrel Bisulfate [PLAVIX Tablet] 75 mg PO DAILY 08/09/17 [History Confirmed 09/26/24] Losartan Potassium [Cozaar] 100 mg PO DAILY 08/09/17 [History Confirmed 09/26/24] Metoprolol Tartrate 25 mg [Lopressor 25MG Tab] 50 mg PO BID 08/09/17 [History Confirmed 09/26/24] Alendronate Sodium 70 mg [Fosamax 70 MG] 70 mg PO Q7D@0600 04/02/21 [History Confirmed 09/26/24] Ezetimibe 10 mg [Zetia 10 MG] 10 mg PO DAILY 04/02/21 [History Confirmed 09/26/24] Amox Tr/Potass Clav. 875 mg [Augmentin 875-125 Tablet] 875 mg PO BID 5 Days #10 tablet 09/24/24 [Rx Confirmed 09/26/24] Atorvastatin Calcium [Lipitor] 20 mg PO DAILY 09/26/24 [History Confirmed 09/26/24] Citalopram Hydrobromide [Celexa] 10 mg PO DAILY 09/26/24 [History Confirmed 09/26/24] Ergocalciferol (Vitamin D2) [Vitamin D2] 1,250 mcg PO UD 09/26/24 [History Confirmed 09/26/24] Ferrous Sulfate [Iron] 325 mg PO DAILY 09/26/24 [History Confirmed 09/26/24] Furosemide 40 mg [Lasix 40 MG] 40 mg PO DAILY 09/26/24 [History Confirmed 09/26/24] Levothyroxine Sodium [Synthroid] 163 mcg PO BREAKFAST 09/26/24 [History Confirmed 09/26/24] Trazodone HCl 50 mg [Desyrel 50 mg] 50 mg PO DAILY PRN 09/26/24 [History Confirmed 09/26/24] Allergies/Adverse Reactions: Allergies Allergy/AdvReac Type Severity Reaction Status Date / Time oxytetracycline Allergy Intermediate Hives Verified 09/24/24 11:14 [From Terramycin] - Past Medical History Past Medical History: Yes Neurological History: Stroke ENT History: No Pertinent History Cardiac History: Hypertension Respiratory History: No Pertinent History Endocrine Medical History: No Pertinent History, Thyroid Cancer Musculoskelatal History: No Pertinent History GI Medical History: No Pertinent History History: No Pertinent History Pyscho-Social History: No Pertinent History Reproductive Disorders: Breast Cancer Comment: Thyroid removed due to CA. Breast CA in 1988. appendix, gallbladder, tonsils removed. - Past Surgical History Past Surgical History: Yes Neuro Surgical History: No Pertinent History Cardiac History: Cardiac Catheterization Respiratory Surgery: No Pertinent History GI Surgical History: Appendectomy, Cholecystectomy Genitourinary Surgical Hx: No Pertinent History Musculskeletal Surgical Hx: Other Female Surgical History: Mastectomy Other Surgical History: t and a, three hand surgeries Significant Family History: polycystic kidneys - Social History Smoking Status: Never smoker Exposure to second hand smoke: No Alcohol: None Drug Use: none - Social Determinants of Health Will the patient participate in the screening: Yes Do you worry about a steady place to live?: No Do you have any problems with any of the following?: No known problems In the past 12 months,have you had to go without utilities?: No Have you or anyone in your house had to go without enough: No Transportation Issues: No Has anyone in your support network made you feel unsafe?: No Does the patient want assistance with any of the above?: No - Physical Exam Vital Signs: Vital Signs - 24 hr Temp Pulse Resp BP BP Pulse Ox 09/27/24 00:00 98.7 F 93 H 17 124/58 93 L 09/26/24 22:06 98.1 F 93 H 19 108/55 93 L 09/26/24 20:40 92 H 19 122/79 95 09/26/24 20:30 96 H 22 127/89 95 09/26/24 20:20 96 H 19 105/79 96 09/26/24 20:10 94 H 13 102/75 96 09/26/24 20:03 94 H 17 104/69 96 09/26/24 19:40 99 H 15 121/67 97 09/26/24 19:36 94 H 18 110/75 97 09/26/24 19:35 96 H 18 98 09/26/24 19:32 90 12 97 09/26/24 19:20 86 16 105/56 97 09/26/24 19:10 90 20 93/63 97 09/26/24 19:00 86 14 99/69 99 09/26/24 18:50 88 16 119/51 86 L 09/26/24 18:40 93 H 20 113/62 98 09/26/24 18:31 95 H 11 L 103/66 96 09/26/24 18:20 86 14 79/60 98 09/26/24 18:10 84 17 103/51 98 09/26/24 18:00 90 21 101/67 09/26/24 17:50 98 H 20 87/48 09/26/24 17:40 94 H 19 87/61 100 09/26/24 17:30 101 H 18 88/65 99 09/26/24 17:20 100 H 18 99/78 09/26/24 17:10 99 H 9 L 94/57 09/26/24 17:00 107 H 34 H 96/51 98 09/26/24 16:58 131 H 23 86/54 09/26/24 16:57 116 H 23 85/54 98 09/26/24 16:54 114 H 15 111/57 91 L 09/26/24 16:50 105 H 18 101/50 96 09/26/24 16:40 96 H 16 107/90 97 09/26/24 16:30 93 H 16 89/57 97 09/26/24 16:20 94 H 18 87/45 96 09/26/24 16:19 94 H 18 98 09/26/24 16:11 134 H 26 H 09/26/24 16:00 102 H 15 121/96 98 09/26/24 15:50 100 H 18 106/56 98 09/26/24 15:40 97 H 16 101/60 96 09/26/24 15:30 96 H 17 113/54 95 09/26/24 15:20 96 H 16 92/59 98 09/26/24 15:10 89 14 103/67 97 09/26/24 15:00 89 21 97/55 92 L 09/26/24 14:50 87 18 92/53 97 09/26/24 14:40 89 15 94/60 98 09/26/24 14:30 91 H 13 102/56 99 09/26/24 14:20 87 15 85/52 97 09/26/24 14:10 90 16 80/51 97 09/26/24 14:00 94 H 17 79/58 98 09/26/24 13:58 93 L 09/26/24 13:50 108 H 14 89/53 86 L 09/26/24 13:40 101 H 17 90/59 92 L 09/26/24 13:39 128 H 18 77/48 94 L 09/26/24 13:38 98 H 18 91/55 94 L 09/26/24 13:30 102 H 18 115/87 85 L 09/26/24 13:20 98.1 F 121 H 23 149/72 99 General Appearance: no apparent distress Neurologic Exam: alert, oriented x 3, cooperative Eye Exam: PERRL/EOMI, eyes nml inspection Ears, Nose, Throat Exam: moist mucous membranes Neck Exam: normal inspection, non-tender, supple Respiratory Exam: normal breath sounds, lungs clear, other (On room air), No res piratory distress Cardiovascular Exam: regular rate/rhythm, normal heart sounds, No edema Gastrointestinal/Abdomen Exam: No tenderness, No distention Back Exam: normal inspection, normal range of motion Extremity Exam: normal inspection, normal range of motion, No joint swelling Skin Exam: dry, No rash Results - Labs Lab/Micro Results: Lab Results-Last 24 Hours 09/26/24 09/26/24 09/26/24 Range/Units 14:00 14:00 14:00 WBC 8.7 (3.98-10.04) x10^3/uL RBC 3.19 L (3.93-5.22) x10^6/uL Hgb 9.4 L (11.2-15.7) g/dL Hct 29.4 L (34.1-44.9) % MCV 92.2 (79.4-94.8) fL MCH 29.5 (25.6-32.2) pg MCHC 32.0 L (32.2-35.5) g/dL RDW 13.8 (11.7-14.4) % Plt Count 293 (182-369) x10^3/uL MPV 9.3 L (9.4-12.3) fL Gran % 69.6 (34.0-71.1) % Immature Gran % (Auto) 0.5 H (0.001-0.429) % Nucleat RBC Rel Count 0.0 (0.00-0.2) % Eos # (Auto) 0.07 (0.04-0.36) x10^3/uL Immature Gran # (Auto) 0.04 H (0.001-0.031) x10^3u/L Absolute Lymphs (auto) 1.84 (1.18-3.74) x10^3/uL Absolute Monos (auto) 0.67 (0.24-0.86) x10^3/uL Absolute Nucleated RBC 0.00 (0.00-0.012) x10^3u/L Lymphocytes % 21.1 (19.3-51.7) % Monocytes % 7.7 (4.7-12.5) % Eosinophils % 0.8 (0.7-5.8) % Basophils % 0.3 (0.1-1.2) % Absolute Granulocytes 6.06 (1.56-6.13) x10^3/uL Basophils # 0.03 (0.01-0.08) x10^3/uL PT 10.6 (9.4-12.5) SECONDS INR 0.97 (0.8-3.0) Sodium 140 (135-145) mmol/L Potassium 3.3 L (3.5-5.1) mmol/L Chloride 102 (98-107) mmol/L Carbon Dioxide 30 (22-30) mmol/L Anion Gap 11.0 (5-15) MEQ/L BUN 19 H (7-17) mg/dL Creatinine 0.94 (0.52-1.04) mg/dL Estimated GFR 64.1 ML/MIN Glucose 91 (74-106) mg/dL Calcium 9.2 (8.4-10.2) mg/dL Magnesium 1.6 (1.6-2.3) mg/dL Total Bilirubin 0.30 (0.2-1.3) mg/dL AST 37 H (14-36) U/L ALT 22 (0-35) U/L Alkaline Phosphatase 56 (38-126) U/L Troponin I (0.000-0.033) ng/mL NT-Pro-B Natriuret Pep (<300) pg/mL Serum Total Protein 6.5 (6.3-8.2) g/dL Albumin 3.8 (3.5-5.0) g/dL Urine Color (Yellow) Urine Appearance (Clear) Urine pH (4.6-8.0) Ur Specific Jean (1.005-1.030) Urine Protein (Negative) Urine Glucose (UA) (Negative) mg/dL Urine Ketones (Negative) Urine Blood (Negative) Urine Nitrite (Negative) Urine Bilirubin (Negative) Urine Urobilinogen (0.2) mg/dL Ur Leukocyte Esterase (Negative) U Hyaline Cast (Auto) (0-2) /LPF Urine Microscopic RBC (0-5) /HPF Urine Microscopic WBC (0-5) /HPF Ur Epithelial Cells (None Seen) /HPF Urine Bacteria (None Seen) /HPF Urine Culture Reflexed (NO) 09/26/24 09/26/24 09/26/24 Range/Units 14:00 16:16 16:48 WBC (3.98-10.04) x10^3/uL RBC (3.93-5.22) x10^6/uL Hgb (11.2-15.7) g/dL Hct (34.1-44.9) % MCV (79.4-94.8) fL MCH (25.6-32.2) pg MCHC (32.2-35.5) g/dL RDW (11.7-14.4) % Plt Count (182-369) x10^3/uL MPV (9.4-12.3) fL Gran % (34.0-71.1) % Immature Gran % (Auto) (0.001-0.429) % Nucleat RBC Rel Count (0.00-0.2) % Eos # (Auto) (0.04-0.36) x10^3/uL Immature Gran # (Auto) (0.001-0.031) x10^3u/L Absolute Lymphs (auto) (1.18-3.74) x10^3/uL Absolute Monos (auto) (0.24-0.86) x10^3/uL Absolute Nucleated RBC (0.00-0.012) x10^3u/L Lymphocytes % (19.3-51.7) % Monocytes % (4.7-12.5) % Eosinophils % (0.7-5.8) % Basophils % (0.1-1.2) % Absolute Granulocytes (1.56-6.13) x10^3/uL Basophils # (0.01-0.08) x10^3/uL PT (9.4-12.5) SECONDS INR (0.8-3.0) Sodium (135-145) mmol/L Potassium (3.5-5.1) mmol/L Chloride (98-107) mmol/L Carbon Dioxide (22-30) mmol/L Anion Gap (5-15) MEQ/L BUN (7-17) mg/dL Creatinine (0.52-1.04) mg/dL Estimated GFR ML/MIN Glucose (74-106) mg/dL Calcium (8.4-10.2) mg/dL Magnesium (1.6-2.3) mg/dL Total Bilirubin (0.2-1.3) mg/dL AST (14-36) U/L ALT (0-35) U/L Alkaline Phosphatase (38-126) U/L Troponin I 0.014 0.013 (0.000-0.033) ng/mL NT-Pro-B Natriuret Pep 203 (<300) pg/mL Serum Total Protein (6.3-8.2) g/dL Albumin (3.5-5.0) g/dL Urine Color Yellow (Yellow) Urine Appearance Clear (Clear) Urine pH 7.0 (4.6-8.0) Ur Specific Jean 1.015 (1.005-1.030) Urine Protein Negative (Negative) Urine Glucose (UA) Negative (Negative) mg/dL Urine Ketones Negative (Negative) Urine Blood Negative (Negative) Urine Nitrite Negative (Negative) Urine Bilirubin Negative (Negative) Urine Urobilinogen 0.2 (0.2) mg/dL Ur Leukocyte Esterase Negative (Negative) U Hyaline Cast (Auto) NONE SEEN (0-2) /LPF Urine Microscopic RBC 0-2 (0-5) /HPF Urine Microscopic WBC 0-2 (0-5) /HPF Ur Epithelial Cells None Seen (None Seen) /HPF Urine Bacteria None Seen (None Seen) /HPF Urine Culture Reflexed NO (NO) 09/26/24 09/26/24 Range/Units 19:55 23:25 WBC 9.5 (3.98-10.04) x10^3/uL RBC 2.89 L (3.93-5.22) x10^6/uL Hgb 8.6 L (11.2-15.7) g/dL Hct 26.5 L (34.1-44.9) % MCV 91.7 (79.4-94.8) fL MCH 29.8 (25.6-32.2) pg MCHC 32.5 (32.2-35.5) g/dL RDW 14.1 (11.7-14.4) % Plt Count 261 (182-369) x10^3/uL MPV 9.3 L (9.4-12.3) fL Gran % 67.8 (34.0-71.1) % Immature Gran % (Auto) 0.3 (0.001-0.429) % Nucleat RBC Rel Count 0.0 (0.00-0.2) % Eos # (Auto) 0.10 (0.04-0.36) x10^3/uL Immature Gran # (Auto) 0.03 (0.001-0.031) x10^3u/L Absolute Lymphs (auto) 2.29 (1.18-3.74) x10^3/uL Absolute Monos (auto) 0.60 (0.24-0.86) x10^3/uL Absolute Nucleated RBC 0.00 (0.00-0.012) x10^3u/L Lymphocytes % 24.2 (19.3-51.7) % Monocytes % 6.3 (4.7-12.5) % Eosinophils % 1.1 (0.7-5.8) % Basophils % 0.3 (0.1-1.2) % Absolute Granulocytes 6.41 H (1.56-6.13) x10^3/uL Basophils # 0.03 (0.01-0.08) x10^3/uL PT (9.4-12.5) SECONDS INR (0.8-3.0) Sodium (135-145) mmol/L Potassium (3.5-5.1) mmol/L Chloride (98-107) mmol/L Carbon Dioxide (22-30) mmol/L Anion Gap (5-15) MEQ/L BUN (7-17) mg/dL Creatinine (0.52-1.04) mg/dL Estimated GFR ML/MIN Glucose (74-106) mg/dL Calcium (8.4-10.2) mg/dL Magnesium (1.6-2.3) mg/dL Total Bilirubin (0.2-1.3) mg/dL AST (14-36) U/L ALT (0-35) U/L Alkaline Phosphatase (38-126) U/L Troponin I < 0.012 (0.000-0.033) ng/mL NT-Pro-B Natriuret Pep (<300) pg/mL Serum Total Protein (6.3-8.2) g/dL Albumin (3.5-5.0) g/dL Urine Color (Yellow) Urine Appearance (Clear) Urine pH (4.6-8.0) Ur Specific Jean (1.005-1.030) Urine Protein (Negative) Urine Glucose (UA) (Negative) mg/dL Urine Ketones (Negative) Urine Blood (Negative) Urine Nitrite (Negative) Urine Bilirubin (Negative) Urine Urobilinogen (0.2) mg/dL Ur Leukocyte Esterase (Negative) U Hyaline Cast (Auto) (0-2) /LPF Urine Microscopic RBC (0-5) /HPF Urine Microscopic WBC (0-5) /HPF Ur Epithelial Cells (None Seen) /HPF Urine Bacteria (None Seen) /HPF Urine Culture Reflexed (NO) Assessment/Plan (1) Hypotension Current Visit: Yes Status: Acute Assessment & Plan: 73-year-old woman with history of hypertension, CVA, depression, and postsurgical hypothyroidism, who presents with hypotension. ## Hypotension patient had episode of vasovagal hypotension during placement of a Rhino Rocket 2 days ago. It is unlikely that she is having persistent vagal stimulation, although presence of the Rhino Rocket could be affecting her. She appears to be responsive to IV fluids, and blood pressure has improved now. Her hemoglobin is relatively stable, so she does not appear to be in hemorrhagic shock (see below). Continuous NS at 100 mL/h Hold home Lasix and losartan Repeat orthostatic vital signs in the morning ## Anemia patient's baseline hemoglobin since mid April has been 10. She has been stable around there between 9 and 10 since then. Today, after fluids with some hemodilution, she is down to 8.6. She does not appear to be in hemorrhagic shock. There does not appear to be any further bleeding from her nose since being packed Sunday. If there was more retrograde bleeding from bleed, she would be having hematemesis. Repeat CBC in the morning ## Epistaxis appears to have resolved. Consider removing Rhino Rocket ## Hypertension currently hypotensive as above. At home, she is on losartan 100, metoprolol 50 BID, and Lasix 40 daily. 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 Continue home thyroid supplementation CODE STATUS: Full code Prophylaxis: Encourage ambulation (low risk, Bob score 1) Diet: Regular Dispo: Place in observation, expect patient to return home tomorrow Code(s): I95.9 - HYPOTENSION, UNSPECIFIED Telemedicine Encounter - Telemedicine Encounter Telemedicine Encounter: "The entirety of this encounter was performed via Telemedicine" This visit was performed using real-time audio and video connection between my location and thepatients locationwith the assistance of a surrogateat the patients location. Written or verbal consent was obtained from the patient/guardian to perform this visit [facility] technology. Any patient questions regarding the telemedicine interaction were answered.
[2024-09-27] MEDS: Sodium Chloride 0.9% 1000 ML 1,000 ML IV SCH (03:18)
--- NOTE | 2024-09-27 05:08 | PCM.DS ---
Discharge Summary Date of Admission: 09/26/24 21:40 Date of Discharge: 09/27/24 Admitting Physician: MAKSIM MAGAÑA MD Primary Care Provider: RIANNA VILLATORO Allergies Allergies oxytetracycline [From Terramycin] Allergy (Intermediate, Verified 09/24/24 11:14) [facility] Summary - Hospital Course Hospital Course: is a 73 year old female with history of postsurgical hypothyroidism, stroke, hypertension, who presents with dizziness and hypotension. Patient had presented 2 days earlier to the ED with persistent epistaxis, requiring Rhino Rocket. At time of placement, patient had episode of hypotension that quickly resolved. She was cautioned to closely monitor her blood pressure at home. She denies any further epistaxis, as well as any hematemesis since leaving the ED. However, today she noted that her blood pressure was lower, and she was dizzy, and particularly upon standing. On arrival to the ED, her BP on standing was 77/48. She was given 2 L IV fluids, and now has had normalization of her blood pressure. She notes that she still has some dizziness when she stands up to walk to the bathroom. She states that she is been eating well for the past few days, and denies any vomiting or diarrhea. No recent changes to her medications. No melena or hematochezia. Discharge Note New Diagnosis: New Medications: Follow Up: Results pending: Outpatient testing to order: Latest Assessment & Plan (1) Hypotension Current Visit: Yes Status: Acute Assessment & Plan: 73-year-old woman with history of hypertension, CVA, depression, and postsurgical hypothyroidism, who presents with hypotension. ## Hypotension patient had episode of vasovagal hypotension during placement of a Rhino Rocket 2 days ago. It is unlikely that she is having persistent vagal stimulation, although presence of the Rhino Rocket could be affecting her. She appears to be responsive to IV fluids, and blood pressure has improved now. Her hemoglobin is relatively stable, so she does not appear to be in hemorrhagic shock (see below). Continuous NS at 100 mL/h Hold home Lasix and losartan Repeat orthostatic vital signs in the morning ## Anemia patient's baseline hemoglobin since mid April has been 10. She has been stable around there between 9 and 10 since then. Today, after fluids with some hemodilution, she is down to 8.6. She does not appear to be in hemorrhagic shock. There does not appear to be any further bleeding from her nose since being packed Sunday. If there was more retrograde bleeding from bleed, she woul d be having hematemesis. Repeat CBC in the morning ## Epistaxis appears to have resolved. Consider removing Rhino Rocket ## Hypertension currently hypotensive as above. At home, she is on losartan 100, metoprolol 50 BID, and Lasix 40 daily. 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 Continue home thyroid supplementation CODE STATUS: Full code Prophylaxis: Encourage ambulation (low risk, Bob score 1) Diet: Regular Dispo: Place in observation, expect patient to return home tomorrow I spent 35 minutes [id number] with the patient on the day of discharge performing discharge exam, discussing hospital stay and discharge instructions with patient and caregivers, preparation of discharge records, prescriptions & referral forms and addressing any questions/concerns the patient had as documented above. - Vitals & Intake/Output Vital Signs: Vital Signs Temperature 98.7 F 09/27/24 03:42 Pulse Rate 96 H 09/27/24 03:42 Respiratory Rate 17 09/27/24 03:42 Blood Pressure 121/56 09/27/24 03:42 O2 Sat by Pulse Oximetry 95 09/27/24 03:42 Intake & Output: Intake & Output 09/24/24 09/25/24 09/26/24 09/27/24 11:59 11:59 11:59 11:59 Intake Total 480 Output Total 300 Balance 180 Weight 98.5 kg - Lab Result Diagrams: 09/26/24 19:55 09/26/24 14:00 Lab Results-Last 24 Hrs: Lab Results-Last 24 Hours 09/26/24 09/26/24 09/26/24 Range/Units 14:00 14:00 14:00 WBC 8.7 (3.98-10.04) x10^3/uL RBC 3.19 L (3.93-5.22) x10^6/uL Hgb 9.4 L (11.2-15.7) g/dL Hct 29.4 L (34.1-44.9) % MCV 92.2 (79.4-94.8) fL MCH 29.5 (25.6-32.2) pg MCHC 32.0 L (32.2-35.5) g/dL RDW 13.8 (11.7-14.4) % Plt Count 293 (182-369) x10^3/uL MPV 9.3 L (9.4-12.3) fL Gran % 69.6 (34.0-71.1) % Immature Gran % (Auto) 0.5 H (0.001-0.429) % Nucleat RBC Rel Count 0.0 (0.00-0.2) % Eos # (Auto) 0.07 (0.04-0.36) x10^3/uL Immature Gran # (Auto) 0.04 H (0.001-0.031) x10^3u/L Absolute Lymphs (auto) 1.84 (1.18-3.74) x10^3/uL Absolute Monos (auto) 0.67 (0.24-0.86) x10^3/uL Absolute Nucleated RBC 0.00 (0.00-0.012) x10^3u/L Lymphocytes % 21.1 (19.3-51.7) % Monocytes % 7.7 (4.7-12.5) % Eosinophils % 0.8 (0.7-5.8) % Basophils % 0.3 (0.1-1.2) % Absolute Granulocytes 6.06 (1.56-6.13) x10^3/uL Basophils # 0.03 (0.01-0.08) x10^3/uL PT 10.6 (9.4-12.5) SECONDS INR 0.97 (0.8-3.0) Sodium 140 (135-145) mmol/L Potassium 3.3 L (3.5-5.1) mmol/L Chloride 102 (98-107) mmol/L Carbon Dioxide 30 (22-30) mmol/L Anion Gap 11.0 (5-15) MEQ/L BUN 19 H (7-17) mg/dL Creatinine 0.94 (0.52-1.04) mg/dL Estimated GFR 64.1 ML/MIN Glucose 91 (74-106) mg/dL Calcium 9.2 (8.4-10.2) mg/dL Magnesium 1.6 (1.6-2.3) mg/dL Total Bilirubin 0.30 (0.2-1.3) mg/dL AST 37 H (14-36) U/L ALT 22 (0-35) U/L Alkaline Phosphatase 56 (38-126) U/L Troponin I (0.000-0.033) ng/mL NT-Pro-B Natriuret Pep (<300) pg/mL Serum Total Protein 6.5 (6.3-8.2) g/dL Albumin 3.8 (3.5-5.0) g/dL Urine Color (Yellow) Urine Appearance (Clear) Urine pH (4.6-8.0) Ur Specific Ramsey (1.005-1.030) Urine Protein (Negative) Urine Glucose (UA) (Negative) mg/dL Urine Ketones (Negative) Urine Blood (Negative) Urine Nitrite (Negative) Urine Bilirubin (Negative) Urine Urobilinogen (0.2) mg/dL Ur Leukocyte Esterase (Negative) U Hyaline Cast (Auto) (0-2) /LPF Urine Microscopic RBC (0-5) /HPF Urine Microscopic WBC (0-5) /HPF Ur Epithelial Cells (None Seen) /HPF Urine Bacteria (None Seen) /HPF Urine Culture Reflexed (NO) 09/26/24 09/26/24 09/26/24 Range/Units 14:00 16:16 16:48 WBC (3.98-10.04) x10^3/uL RBC (3.93-5.22) x10^6/uL Hgb (11.2-15.7) g/dL Hct (34.1-44.9) % MCV (79.4-94.8) fL MCH (25.6-32.2) pg MCHC (32.2-35.5) g/dL RDW (11.7-14.4) % Plt Count (182-369) x10^3/uL MPV (9.4-12.3) fL Gran % (34.0-71.1) % Immature Gran % (Auto) (0.001-0.429) % Nucleat RBC Rel Count (0.00-0.2) % Eos # (Auto) (0.04-0.36) x10^3/uL Immature Gran # (Auto) (0.001-0.031) x10^3u/L Absolute Lymphs (auto) (1.18-3.74) x10^3/uL Absolute Monos (auto) (0.24-0.86) x10^3/uL Absolute Nucleated RBC (0.00-0.012) x10^3u/L Lymphocytes % (19.3-51.7) % Monocytes % (4.7-12.5) % Eosinophils % (0.7-5.8) % Basophils % (0.1-1.2) % Absolute Granulocytes (1.56-6.13) x10^3/uL Basophils # (0.01-0.08) x10^3/uL PT (9.4-12.5) SECONDS INR (0.8-3.0) Sodium (135-145) mmol/L Potassium (3.5-5.1) mmol/L Chloride (98-107) mmol/L Carbon Dioxide (22-30) mmol/L Anion Gap (5-15) MEQ/L BUN (7-17) mg/dL Creatinine (0.52-1.04) mg/dL Estimated GFR ML/MIN Glucose (74-106) mg/dL Calcium (8.4-10.2) mg/dL Magnesium (1.6-2.3) mg/dL Total Bilirubin (0.2-1.3) mg/dL AST (14-36) U/L ALT (0-35) U/L Alkaline Phosphatase (38-126) U/L Troponin I 0.014 0.013 (0.000-0.033) ng/mL NT-Pro-B Natriuret Pep 203 (<300) pg/mL Serum Total Protein (6.3-8.2) g/dL Albumin (3.5-5.0) g/dL Urine Color Yellow (Yellow) Urine Appearance Clear (Clear) Urine pH 7.0 (4.6-8.0) Ur Specific Ramsey 1.015 (1.005-1.030) Urine Protein Negative (Negative) Urine Glucose (UA) Negative (Negative) mg/dL Urine Ketones Negative (Negative) Urine Blood Negative (Negative) Urine Nitrite Negative (Negative) Urine Bilirubin Negative (Negative) Urine Urobilinogen 0.2 (0.2) mg/dL Ur Leukocyte Esterase Negative (Negative) U Hyaline Cast (Auto) NONE SEEN (0-2) /LPF Urine Microscopic RBC 0-2 (0-5) /HPF Urine Microscopic WBC 0-2 (0-5) /HPF Ur Epithelial Cells None Seen (None Seen) /HPF Urine Bacteria None Seen (None Seen) /HPF Urine Culture Reflexed NO (NO) 09/26/24 09/26/24 Range/Units 19:55 23:25 WBC 9.5 (3.98-10.04) x10^3/uL RBC 2.89 L (3.93-5.22) x10^6/uL Hgb 8.6 L (11.2-15.7) g/dL Hct 26.5 L (34.1-44.9) % MCV 91.7 (79.4-94.8) fL MCH 29.8 (25.6-32.2) pg MCHC 32.5 (32.2-35.5) g/dL RDW 14.1 (11.7-14.4) % Plt Count 261 (182-369) x10^3/uL MPV 9.3 L (9.4-12.3) fL Gran % 67.8 (34.0-71.1) % Immature Gran % (Auto) 0.3 (0.001-0.429) % Nucleat RBC Rel Count 0.0 (0.00-0.2) % Eos # (Auto) 0.10 (0.04-0.36) x10^3/uL Immature Gran # (Auto) 0.03 (0.001-0.031) x10^3u/L Absolute Lymphs (auto) 2.29 (1.18-3.74) x10^3/uL Absolute Monos (auto) 0.60 (0.24-0.86) x10^3/uL Absolute Nucleated RBC 0.00 (0.00-0.012) x10^3u/L Lymphocytes % 24.2 (19.3-51.7) % Monocytes % 6.3 (4.7-12.5) % Eosinophils % 1.1 (0.7-5.8) % Basophils % 0.3 (0.1-1.2) % Absolute Granulocytes 6.41 H (1.56-6.13) x10^3/uL Basophils # 0.03 (0.01-0.08) x10^3/uL PT (9.4-12.5) SECONDS INR (0.8-3.0) Sodium (135-145) mmol/L Potassium (3.5-5.1) mmol/L Chloride (98-107) mmol/L Carbon Dioxide (22-30) mmol/L Anion Gap (5-15) MEQ/L BUN (7-17) mg/dL Creatinine (0.52-1.04) mg/dL Estimated GFR ML/MIN Glucose (74-106) mg/dL Calcium (8.4-10.2) mg/dL Magnesium (1.6-2.3) mg/dL Total Bilirubin (0.2-1.3) mg/dL AST (14-36) U/L ALT (0-35) U/L Alkaline Phosphatase (38-126) U/L Troponin I < 0.012 (0.000-0.033) ng/mL NT-Pro-B Natriuret Pep (<300) pg/mL Serum Total Protein (6.3-8.2) g/dL Albumin (3.5-5.0) g/dL Urine Color (Yellow) Urine Appearance (Clear) Urine pH (4.6-8.0) Ur Specific Ramsey (1.005-1.030) Urine Protein (Negative) Urine Glucose (UA) (Negative) mg/dL Urine Ketones (Negative) Urine Blood (Negative) Urine Nitrite (Negative) Urine Bilirubin (Negative) Urine Urobilinogen (0.2) mg/dL Ur Leukocyte Esterase (Negative) U Hyaline Cast (Auto) (0-2) /LPF Urine Microscopic RBC (0-5) /HPF Urine Microscopic WBC (0-5) /HPF Ur Epithelial Cells (None Seen) /HPF Urine Bacteria (None Seen) /HPF Urine Culture Reflexed (NO) Final Diagnosis/Problem List - Final Discharge Diagnosis/Problem (1) HTN (hypertension) Current Visit: Yes Status: Acute Code(s): I10 - ESSENTIAL (PRIMARY) HYPERTENSION (2) Epistaxis Current Visit: Yes Status: Acute Code(s): R04.0 - EPISTAXIS (3) History of CVA (cerebrovascular accident) Current Visit: Yes Status: Acute Code(s): Z86.73 - PRSNL HX OF TIA (TIA), AND CEREB INFRC W/O RESID DEFICITS (4) Anemia Current Visit: Yes Status: Acute Code(s): D64.9 - ANEMIA, UNSPECIFIED (5) Hypotension Current Visit: Yes Status: Acute Code(s): I95.9 - HYPOTENSION, UNSPECIFIED - Discharge Disposition: Home, Self-Care Condition: Fair Prescriptions: No Action Losartan Potassium [Cozaar] 100 mg PO DAILY Clopidogrel Bisulfate [PLAVIX Tablet] 75 mg PO DAILY Metoprolol Tartrate 25 mg [Lopressor 25MG Tab] 50 mg PO BID Ezetimibe 10 mg [Zetia 10 MG] 10 mg PO DAILY Alendronate Sodium 70 mg [Fosamax 70 MG] 70 mg PO Q7D@0600 Amox Tr/Potass Clav. 875 mg [Augmentin 875-125 Tablet] 875 mg PO BID 5 Days #10 tablet Ferrous Sulfate [Iron] 325 mg PO DAILY Citalopram Hydrobromide [Celexa] 10 mg PO DAILY Trazodone HCl 50 mg [Desyrel 50 mg] 50 mg PO DAILY PRN PRN Reason: Pain Atorvastatin Calcium [Lipitor] 20 mg PO DAILY Levothyroxine Sodium [Synthroid] 163 mcg PO BREAKFAST Ergocalciferol (Vitamin D2) [Vitamin D2] 1,250 mcg PO UD Furosemide 40 mg [Lasix 40 MG] 40 mg PO DAILY Follow up with: RIANNA VILLATORO [Primary Care Provider] -
[2024-09-27 05:52] LABS: Hematocrit 25.9 % (34.1-44.9); Hemoglobin 8.6 g/dL (11.2-15.7); Mean Cell Volume 91.5 fL (79.4-94.8); Mean Corpuscular Hemoglobin 30.4 pg (25.6-32.2); Mean Corpuscular Hgb Concent. 33.2 g/dL (32.2-35.5); Mean Platelet Volume 9.5 fL (9.4-12.3); Platelet Count 264 x10^3/uL (182-369); Red Blood Count 2.83 x10^6/uL (3.93-5.22); Red Cell Distribution Width 13.8 % (11.7-14.4); White Blood Count 7.5 x10^3/uL (3.98-10.04)
[2024-09-27 06:18] LABS: ANION GAP 7.3 MEQ/L (5-15); Calcium 8.2 mg/dL (8.4-10.2); Creatinine 1 0.73 mg/dL (0.52-1.04); EST GLOMERULAR FILTRATION RATE 86.8 ML/MIN; Potassium 3.1 mmol/L (3.5-5.1)
[2024-09-27] MEDS: SYNTHROID 50 MCG PO SCH (07:53)
[2024-09-27] MEDS: SYNTHROID 112 MCG PO SCH (07:53)
[2024-09-27] MEDS ORDERED: LEVOTHYROXINE SODIUM 175 MCG PO SCH (08:00)
--- NOTE | 2024-09-27 08:47 | PCM.NOTE ---
Date and Time: 09/27/24 0841 Subjective Assessment: HPI: is a 73 year old female with history of postsurgical hypothyroidism, stroke, hypertension, who presented 09/26/24 with complaints of dizziness and hypotension. Patient had presented 2 days earlier to the ED with persistent epistaxis, requiring Rhino Rocket. At time of placement, patient had episode of hypotension that quickly resolved. She was cautioned to closely monitor her blood pressure at home. She denies any further epistaxis, as well as any hematemesis since leaving the ED. However, today she noted that her blood pressure was lower, and she was dizzy, and particularly upon standing. On arrival to the ED, her BP on standing was 77/48. She was given 2 L IV fluids, and now has had normalization of her blood pressure. She notes that she still has some dizziness when she stands up to walk to the bathroom. Admission for hypotension. 09/27/24: Met with patient bedside. Hypotension improved with IVF. Patient endorses continued weakness and mild dizziness with standing and ambulating. Lives home alone and does not feel well enough for discharge today. Rhino Rocket placed three days ago and planned removal on Sunday. Potassium low this morning and will be replenished. Hemoglobin remains stable. Denies fever,cough, sob, cp, abdominal pain, PETERSON,N/V/D. - Review of Systems Constitutional: Weakness Eyes: No Symptoms Ears, Nose, & Throat: No Symptoms Respiratory: No Symptoms Cardiac: No Symptoms Abdominal/Gastrointestinal: No Symptoms Genitourinary Symptoms: No Symptoms Musculoskeletal: No Symptoms Skin: No Symptoms Neurological: Dizziness Psychological: No Symptoms Endocrine: No Symptoms Hematologic/Lymphatic: No Symptoms Immunological/Allergic: No Symptoms Objective Exam General Appearance: no apparent distress Neurologic Exam: alert, oriented x 3, cooperative Skin Exam: pale Eye Exam: PERRL Ears, Nose, Throat Exam: other (Rhino rocket in left nostril) Neck Exam: normal inspection Respiratory Exam: normal breath sounds, lungs clear Cardiovascular Exam: regular rate/rhythm, normal heart sounds Gastrointestinal/Abdomen Exam: soft, normal bowel sounds Extremity Exam: normal inspection Back Exam: normal inspection Pelvic Exam: deferred Rectal Exam: deferred Objective Data Vital Signs: Vital Signs - 24 hr Temp Pulse Resp BP BP Pulse Ox 09/27/24 06:54 97.6 F 78 15 120/60 100 09/27/24 03:42 98.7 F 96 H 17 121/56 95 09/27/24 00:00 98.7 F 93 H 17 124/58 93 L 09/26/24 22:06 98.1 F 93 H 19 108/55 93 L 09/26/24 20:40 92 H 19 122/79 95 09/26/24 20:30 96 H 22 127/89 95 09/26/24 20:20 96 H 19 105/79 96 09/26/24 20:10 94 H 13 102/75 96 09/26/24 20:03 94 H 17 104/69 96 09/26/24 19:40 99 H 15 121/67 97 09/26/24 19:36 94 H 18 110/75 97 09/26/24 19:35 96 H 18 98 09/26/24 19:32 90 12 97 09/26/24 19:20 86 16 105/56 97 09/26/24 19:10 90 20 93/63 97 09/26/24 19:00 86 14 99/69 99 09/26/24 18:50 88 16 119/51 86 L 09/26/24 18:40 93 H 20 113/62 98 09/26/24 18:31 95 H 11 L 103/66 96 09/26/24 18:20 86 14 79/60 98 09/26/24 18:10 84 17 103/51 98 09/26/24 18:00 90 21 101/67 09/26/24 17:50 98 H 20 87/48 09/26/24 17:40 94 H 19 87/61 100 09/26/24 17:30 101 H 18 88/65 99 09/26/24 17:20 100 H 18 99/78 09/26/24 17:10 99 H 9 L 94/57 09/26/24 17:00 107 H 34 H 96/51 98 09/26/24 16:58 131 H 23 86/54 09/26/24 16:57 116 H 23 85/54 98 09/26/24 16:54 114 H 15 111/57 91 L 09/26/24 16:50 105 H 18 101/50 96 09/26/24 16:40 96 H 16 107/90 97 09/26/24 16:30 93 H 16 89/57 97 09/26/24 16:20 94 H 18 87/45 96 09/26/24 16:19 94 H 18 98 09/26/24 16:11 134 H 26 H 09/26/24 16:00 102 H 15 121/96 98 09/26/24 15:50 100 H 18 106/56 98 09/26/24 15:40 97 H 16 101/60 96 09/26/24 15:30 96 H 17 113/54 95 09/26/24 15:20 96 H 16 92/59 98 09/26/24 15:10 89 14 103/67 97 09/26/24 15:00 89 21 97/55 92 L 09/26/24 14:50 87 18 92/53 97 09/26/24 14:40 89 15 94/60 98 09/26/24 14:30 91 H 13 102/56 99 09/26/24 14:20 87 15 85/52 97 09/26/24 14:10 90 16 80/51 97 09/26/24 14:00 94 H 17 79/58 98 09/26/24 13:58 93 L 09/26/24 13:50 108 H 14 89/53 86 L 09/26/24 13:40 101 H 17 90/59 92 L 09/26/24 13:39 128 H 18 77/48 94 L 09/26/24 13:38 98 H 18 91/55 94 L 09/26/24 13:30 102 H 18 115/87 85 L 09/26/24 13:20 98.1 F 121 H 23 149/72 99 Pain Assessment - Last Documented Pain Intensity 0 Intake and Output: Intake & Output 09/24/24 09/25/24 09/26/24 09/27/24 11:59 11:59 11:59 11:59 Intake Total 840 Output Total 500 Balance 340 Weight 98.5 kg Lab Results: Lab Results-Last 24 Hours 09/26/24 09/26/24 09/26/24 Range/Units 14:00 14:00 14:00 WBC 8.7 (3.98-10.04) x10^3/uL RBC 3.19 L (3.93-5.22) x10^6/uL Hgb 9.4 L (11.2-15.7) g/dL Hct 29.4 L (34.1-44.9) % MCV 92.2 (79.4-94.8) fL MCH 29.5 (25.6-32.2) pg MCHC 32.0 L (32.2-35.5) g/dL RDW 13.8 (11.7-14.4) % Plt Count 293 (182-369) x10^3/uL MPV 9.3 L (9.4-12.3) fL Gran % 69.6 (34.0-71.1) % Immature Gran % (Auto) 0.5 H (0.001-0.429) % Nucleat RBC Rel Count 0.0 (0.00-0.2) % Eos # (Auto) 0.07 (0.04-0.36) x10^3/uL Immature Gran # (Auto) 0.04 H (0.001-0.031) x10^3u/L Absolute Lymphs (auto) 1.84 (1.18-3.74) x10^3/uL Absolute Monos (auto) 0.67 (0.24-0.86) x10^3/uL Absolute Nucleated RBC 0.00 (0.00-0.012) x10^3u/L Lymphocytes % 21.1 (19.3-51.7) % Monocytes % 7.7 (4.7-12.5) % Eosinophils % 0.8 (0.7-5.8) % Basophils % 0.3 (0.1-1.2) % Absolute Granulocytes 6.06 (1.56-6.13) x10^3/uL Basophils # 0.03 (0.01-0.08) x10^3/uL PT 10.6 (9.4-12.5) SECONDS INR 0.97 (0.8-3.0) Sodium 140 (135-145) mmol/L Potassium 3.3 L (3.5-5.1) mmol/L Chloride 102 (98-107) mmol/L Carbon Dioxide 30 (22-30) mmol/L Anion Gap 11.0 (5-15) MEQ/L BUN 19 H (7-17) mg/dL Creatinine 0.94 (0.52-1.04) mg/dL Estimated GFR 64.1 ML/MIN Glucose 91 (74-106) mg/dL Calcium 9.2 (8.4-10.2) mg/dL Magnesium 1.6 (1.6-2.3) mg/dL Total Bilirubin 0.30 (0.2-1.3) mg/dL AST 37 H (14-36) U/L ALT 22 (0-35) U/L Alkaline Phosphatase 56 (38-126) U/L Troponin I (0.000-0.033) ng/mL NT-Pro-B Natriuret Pep (<300) pg/mL Serum Total Protein 6.5 (6.3-8.2) g/dL Albumin 3.8 (3.5-5.0) g/dL Urine Color (Yellow) Urine Appearance (Clear) Urine pH (4.6-8.0) Ur Specific [place] (1.005-1.030) Urine Protein (Negative) Urine Glucose (UA) (Negative) mg/dL Urine Ketones (Negative) Urine Blood (Negative) Urine Nitrite (Negative) Urine Bilirubin (Negative) Urine Urobilinogen (0.2) mg/dL Ur Leukocyte Esterase (Negative) U Hyaline Cast (Auto) (0-2) /LPF Urine Microscopic RBC (0-5) /HPF Urine Microscopic WBC (0-5) /HPF Ur Epithelial Cells (None Seen) /HPF Urine Bacteria (None Seen) /HPF Urine Culture Reflexed (NO) 09/26/24 09/26/24 09/26/24 Range/Units 14:00 16:16 16:48 WBC (3.98-10.04) x10^3/uL RBC (3.93-5.22) x10^6/uL Hgb (11.2-15.7) g/dL Hct (34.1-44.9) % MCV (79.4-94.8) fL MCH (25.6-32.2) pg MCHC (32.2-35.5) g/dL RDW (11.7-14.4) % Plt Count (182-369) x10^3/uL MPV (9.4-12.3) fL Gran % (34.0-71.1) % Immature Gran % (Auto) (0.001-0.429) % Nucleat RBC Rel Count (0.00-0.2) % Eos # (Auto) (0.04-0.36) x10^3/uL Immature Gran # (Auto) (0.001-0.031) x10^3u/L Absolute Lymphs (auto) (1.18-3.74) x10^3/uL Absolute Monos (auto) (0.24-0.86) x10^3/uL Absolute Nucleated RBC (0.00-0.012) x10^3u/L Lymphocytes % (19.3-51.7) % Monocytes % (4.7-12.5) % Eosinophils % (0.7-5.8) % Basophils % (0.1-1.2) % Absolute Granulocytes (1.56-6.13) x10^3/uL Basophils # (0.01-0.08) x10^3/uL PT (9.4-12.5) SECONDS INR (0.8-3.0) Sodium (135-145) mmol/L Potassium (3.5-5.1) mmol/L Chloride (98-107) mmol/L Carbon Dioxide (22-30) mmol/L Anion Gap (5-15) MEQ/L BUN (7-17) mg/dL Creatinine (0.52-1.04) mg/dL Estimated GFR ML/MIN Glucose (74-106) mg/dL Calcium (8.4-10.2) mg/dL Magnesium (1.6-2.3) mg/dL Total Bilirubin (0.2-1.3) mg/dL AST (14-36) U/L ALT (0-35) U/L Alkaline Phosphatase (38-126) U/L Troponin I 0.014 0.013 (0.000-0.033) ng/mL NT-Pro-B Natriuret Pep 203 (<300) pg/mL Serum Total Protein (6.3-8.2) g/dL Albumin (3.5-5.0) g/dL Urine Color Yellow (Yellow) Urine Appearance Clear (Clear) Urine pH 7.0 (4.6-8.0) Ur Specific [place] 1.015 (1.005-1.030) Urine Protein Negative (Negative) Urine Glucose (UA) Negative (Negative) mg/dL Urine Ketones Negative (Negative) Urine Blood Negative (Negative) Urine Nitrite Negative (Negative) Urine Bilirubin Negative (Negative) Urine Urobilinogen 0.2 (0.2) mg/dL Ur Leukocyte Esterase Negative (Negative) U Hyaline Cast (Auto) NONE SEEN (0-2) /LPF Urine Microscopic RBC 0-2 (0-5) /HPF Urine Microscopic WBC 0-2 (0-5) /HPF Ur Epithelial Cells None Seen (None Seen) /HPF Urine Bacteria None Seen (None Seen) /HPF Urine Culture Reflexed NO (NO) 09/26/24 09/26/24 09/27/24 Range/Units 19:55 23:25 05:09 WBC 9.5 7.5 (3.98-10.04) x10^3/uL RBC 2.89 L 2.83 L (3.93-5.22) x10^6/uL Hgb 8.6 L 8.6 L (11.2-15.7) g/dL Hct 26.5 L 25.9 L (34.1-44.9) % MCV 91.7 91.5 (79.4-94.8) fL MCH 29.8 30.4 (25.6-32.2) pg MCHC 32.5 33.2 (32.2-35.5) g/dL RDW 14.1 13.8 (11.7-14.4) % Plt Count 261 264 (182-369) x10^3/uL MPV 9.3 L 9.5 (9.4-12.3) fL Gran % 67.8 (34.0-71.1) % Immature Gran % (Auto) 0.3 (0.001-0.429) % Nucleat RBC Rel Count 0.0 (0.00-0.2) % Eos # (Auto) 0.10 (0.04-0.36) x10^3/uL Immature Gran # (Auto) 0.03 (0.001-0.031) x10^3u/L Absolute Lymphs (auto) 2.29 (1.18-3.74) x10^3/uL Absolute Monos (auto) 0.60 (0.24-0.86) x10^3/uL Absolute Nucleated RBC 0.00 (0.00-0.012) x10^3u/L Lymphocytes % 24.2 (19.3-51.7) % Monocytes % 6.3 (4.7-12.5) % Eosinophils % 1.1 (0.7-5.8) % Basophils % 0.3 (0.1-1.2) % Absolute Granulocytes 6.41 H (1.56-6.13) x10^3/uL Basophils # 0.03 (0.01-0.08) x10^3/uL PT (9.4-12.5) SECONDS INR (0.8-3.0) Sodium (135-145) mmol/L Potassium (3.5-5.1) mmol/L Chloride (98-107) mmol/L Carbon Dioxide (22-30) mmol/L Anion Gap (5-15) MEQ/L BUN (7-17) mg/dL Creatinine (0.52-1.04) mg/dL Estimated GFR ML/MIN Glucose (74-106) mg/dL Calcium (8.4-10.2) mg/dL Magnesium (1.6-2.3) mg/dL Total Bilirubin (0.2-1.3) mg/dL AST (14-36) U/L ALT (0-35) U/L Alkaline Phosphatase (38-126) U/L Troponin I < 0.012 (0.000-0.033) ng/mL NT-Pro-B Natriuret Pep (<300) pg/mL Serum Total Protein (6.3-8.2) g/dL Albumin (3.5-5.0) g/dL Urine Color (Yellow) Urine Appearance (Clear) Urine pH (4.6-8.0) Ur Specific [place] (1.005-1.030) Urine Protein (Negative) Urine Glucose (UA) (Negative) mg/dL Urine Ketones (Negative) Urine Blood (Negative) Urine Nitrite (Negative) Urine Bilirubin (Negative) Urine Urobilinogen (0.2) mg/dL Ur Leukocyte Esterase (Negative) U Hyaline Cast (Auto) (0-2) /LPF Urine Microscopic RBC (0-5) /HPF Urine Microscopic WBC (0-5) /HPF Ur Epithelial Cells (None Seen) /HPF Urine Bacteria (None Seen) /HPF Urine Culture Reflexed (NO) 09/27/24 Range/Units 05:09 WBC (3.98-10.04) x10^3/uL RBC (3.93-5.22) x10^6/uL Hgb (11.2-15.7) g/dL Hct (34.1-44.9) % MCV (79.4-94.8) fL MCH (25.6-32.2) pg MCHC (32.2-35.5) g/dL RDW (11.7-14.4) % Plt Count (182-369) x10^3/uL MPV (9.4-12.3) fL Gran % (34.0-71.1) % Immature Gran % (Auto) (0.001-0.429) % Nucleat RBC Rel Count (0.00-0.2) % Eos # (Auto) (0.04-0.36) x10^3/uL Immature Gran # (Auto) (0.001-0.031) x10^3u/L Absolute Lymphs (auto) (1.18-3.74) x10^3/uL Absolute Monos (auto) (0.24-0.86) x10^3/uL Absolute Nucleated RBC (0.00-0.012) x10^3u/L Lymphocytes % (19.3-51.7) % Monocytes % (4.7-12.5) % Eosinophils % (0.7-5.8) % Basophils % (0.1-1.2) % Absolute Granulocytes (1.56-6.13) x10^3/uL Basophils # (0.01-0.08) x10^3/uL PT (9.4-12.5) SECONDS INR (0.8-3.0) Sodium 137 (135-145) mmol/L Potassium 3.1 L (3.5-5.1) mmol/L Chloride 104 (98-107) mmol/L Carbon Dioxide 28 (22-30) mmol/L Anion Gap 7.3 (5-15) MEQ/L BUN 13 (7-17) mg/dL Creatinine 0.73 (0.52-1.04) mg/dL Estimated GFR 86.8 ML/MIN Glucose 100 (74-106) mg/dL Calcium 8.2 L (8.4-10.2) mg/dL Magnesium (1.6-2.3) mg/dL Total Bilirubin (0.2-1.3) mg/dL AST (14-36) U/L ALT (0-35) U/L Alkaline Phosphatase (38-126) U/L Troponin I (0.000-0.033) ng/mL NT-Pro-B Natriuret Pep (<300) pg/mL Serum Total Protein (6.3-8.2) g/dL Albumin (3.5-5.0) g/dL Urine Color (Yellow) Urine Appearance (Clear) Urine pH (4.6-8.0) Ur Specific [place] (1.005-1.030) Urine Protein (Negative) Urine Glucose (UA) (Negative) mg/dL Urine Ketones (Negative) Urine Blood (Negative) Urine Nitrite (Negative) Urine Bilirubin (Negative) Urine Urobilinogen (0.2) mg/dL Ur Leukocyte Esterase (Negative) U Hyaline Cast (Auto) (0-2) /LPF Urine Microscopic RBC (0-5) /HPF Urine Microscopic WBC (0-5) /HPF Ur Epithelial Cells (None Seen) /HPF Urine Bacteria (None Seen) /HPF Urine Culture Reflexed (NO) Assessment/Plan (1) Hypotension Current Visit: Yes Status: Acute Assessment & Plan: -Improving now at 120/60 -continue to hold BP meds -IVF -Orthostatic vitals Code(s): I95.9 - HYPOTENSION, UNSPECIFIED (2) HTN (hypertension) Current Visit: Yes Status: Acute Assessment & Plan: admission for hypotension - improving -Home meds losartan 100, metoprolol 50 BID, and Lasix 40 daily -will hold for now Code(s): I10 - ESSENTIAL (PRIMARY) HYPERTENSION (3) Epistaxis Current Visit: Yes Status: Acute Assessment & Plan: -Hgb reviewed and stable at 8.6 -Rhino Rocket planned removal on Sunday Code(s): R04.0 - EPISTAXIS (4) History of CVA (cerebrovascular accident) Current Visit: Yes Status: Acute Assessment & Plan: Continue atorvastatin 20, Plavix 75 Code(s): Z86.73 - PRSNL HX OF TIA (TIA), AND CEREB INFRC W/O RESID DEFICITS (5) Anemia Current Visit: Yes Status: Acute Assessment & Plan: Baseline hemoglobin since mid April has been 10 -Hgb stable at 8.6 CODE STATUS: Full code Prophylaxis: Encourage ambulation (low risk, Bob score 1) Diet: Regular Dispo: Place in observation, expect patient to return home tomorrow Code(s): D64.9 - ANEMIA, UNSPECIFIED
[2024-09-27] MEDS ORDERED: NON-FORMULARY ITEM (Atorvastatin Calcium [Lipitor] 20 MG Tablet) PO SCH (10:00)
[2024-09-27] MEDS ORDERED: NON-FORMULARY ITEM (Citalopram Hydrobromide [Celexa] 10 MG Tablet) PO SCH (10:00)
[2024-09-27] MEDS: Zetia 10 MG PO SCH (10:34)
[2024-09-27] MEDS: ceLEXa 20 MG PO SCH (10:49)
[2024-09-27] MEDS: Lopressor 25MG Tab PO SCH (10:50)
[2024-09-27] MEDS: PLAVIX Tablet PO SCH (10:51)
[2024-09-27] MEDS: Klor Con PO SCH (11:09)
[2024-09-27] MEDS: Augmentin 875-125 Tablet PO SCH (11:09)
[2024-09-27] MEDS: ZOCOR 20MG PO SCH (22:07)
[2024-09-28 04:08] VITALS: RESP 16
[2024-09-28 05:34] LABS: BASOPHIL % 0.5 % (0.1-1.2); Basophil (Absolute #) 0.04 x10^3/uL (0.01-0.08); Eosinophil % 2.9 % (0.7-5.8); Eosinophil (Absolute #) 0.22 x10^3/uL (0.04-0.36); Hematocrit 26.2 % (34.1-44.9); Hemoglobin 8.2 g/dL (11.2-15.7); IMMATURE GRAN # 0.03 x10^3u/L (0.001-0.031); IMMATURE GRAN % 0.4 % (0.001-0.429); Lymphocyte (Absolute #) 1.82 x10^3/uL (1.18-3.74); Mean Cell Volume 94.2 fL (79.4-94.8); Mean Corpuscular Hemoglobin 29.5 pg (25.6-32.2); Mean Corpuscular Hgb Concent. 31.3 g/dL (32.2-35.5); Mean Platelet Volume 9.2 fL (9.4-12.3); Monocyte (Absolute #) 0.46 x10^3/uL (0.24-0.86); Monocytes % 6.1 % (4.7-12.5); Neutrophil % 66.1 % (34.0-71.1); Platelet Count 273 x10^3/uL (182-369); Red Blood Count 2.78 x10^6/uL (3.93-5.22); Red Cell Distribution Width 14.1 % (11.7-14.4); White Blood Count 7.6 x10^3/uL (3.98-10.04)
[2024-09-28 05:56] LABS: ALBUMIN 3.1 g/dL (3.5-5.0); ANION GAP 6.5 MEQ/L (5-15); BILIRUBIN,TOTAL 0.2 mg/dL (0.2-1.3); Calcium 8.9 mg/dL (8.4-10.2); Creatinine 1 0.66 mg/dL (0.52-1.04); EST GLOMERULAR FILTRATION RATE 92.6 ML/MIN; MAGNESIUM 1.9 mg/dL (1.6-2.3); Total Protein 5.6 g/dL (6.3-8.2)
--- NOTE | 2024-09-28 08:40 | PCM.DS ---
Discharge Summary Date of Admission: 09/26/24 21:40 Date of Discharge: 09/28/24 Admitting Physician: MAKSIM MAGAÑA MD Primary Care Provider: RIANNA VILLATORO Allergies Allergies oxytetracycline [From Terramycin] Allergy (Intermediate, Verified 09/24/24 11:14) [facility] Summary - Hospital Course Hospital Course: HPI: is a 73 year old female with history of postsurgical hypothyroidism, stroke, hypertension, who presented 09/26/24 with complaints of dizziness and hypotension. Patient had presented 2 days earlier to the ED with persistent epis taxis, requiring Rhino Rocket. At time of placement, patient had episode of hypotension that quickly resolved. She was cautioned to closely monitor her blood pressure at home. She denies any further epistaxis, as well as any hematemesis since leaving the ED. However, today she noted that her blood p ressure was lower, and she was dizzy, and particularly upon standing. On arrival to the ED, her BP on standing was 77/48. She was given 2 L IV fluids, and now has had normalization of her blood pressure. Admission for hypotension. Lasix and Losartan held during admission. No further events of hypotension. BP has remained stable. Will resume Metoprolol. Advised patient to continue to hold lasix/losartan until follow up with PCP. She is to maintain a BP log and take with her to follow up appt next week with cardiology. Patient advised to monitor weight daily if your weight goes up by more than 2-3 pounds in one day or by 5 lbs over a week -prior to follow up appt- contact cardiology regarding resumption of lasix. Continue to hold plavix as advised. No further episodes of dizziness. Weakness resolved. Hemoglobin has remained stable. Patient to follow up Sunday for Rhino Rocket removal. Hypokalemia resolved. Patient states she has follow up with cardiology next week. Discharge Note New Diagnosis: Hypotension/Hypokalemia New Medications: Hold lasix/plavix/losartan Follow Up: PCP Latest Assessment & Plan (1) Hypotension Current Visit: Yes Status: Acute Assessment & Plan: -Improving now at 120/60 -continue to hold BP meds -IVF -Orthostatic vitals Code(s): I95.9 - HYPOTENSION, UNSPECIFIED (2) HTN (hypertension) Current Visit: Yes Status: Acute Assessment & Plan: admission for hypotension - improving -Home meds losartan 100, metoprolol 50 BID, and Lasix 40 daily -will hold for now Code(s): I10 - ESSENTIAL (PRIMARY) HYPERTENSION (3) Epistaxis Current Visit: Yes Status: Acute Assessment & Plan: -Hgb reviewed and stable at 8.6 -Rhino Rocket planned removal on Sunday Code(s): R04.0 - EPISTAXIS (4) History of CVA (cerebrovascular accident) Current Visit: Yes Status: Acute Assessment & Plan: Continue atorvastatin 20, Plavix 75 Code(s): Z86.73 - PRSNL HX OF TIA (TIA), AND CEREB INFRC W/O RESID DEFICITS (5) Anemia Current Visit: Yes Status: Acute Assessment & Plan: Baseline hemoglobin since mid April has been 10 -Hgb stable at 8.6 I spent 35 minutes [id number] with the patient on the day of discharge performing discharge exam, discussing hospital stay and discharge instructions with patient and caregivers, preparation of discharge records, prescriptions & referral forms and addressing any questions/concerns the patient had as documented above. - Vitals & Intake/Output Vital Signs: Vital Signs Temperature 97.8 F 09/28/24 07:09 Pulse Rate 75 09/28/24 07:09 Respiratory Rate 16 09/28/24 07:09 Blood Pressure 163/77 09/28/24 07:09 O2 Sat by Pulse Oximetry 98 09/28/24 07:09 Intake & Output: Intake & Output 09/25/24 09/26/24 09/27/24 09/28/24 11:59 11:59 11:59 11:59 Intake Total 840 3087 Output Total 500 1300 Balance 340 1787 Weight 98.5 kg - Lab Result Diagrams: 09/28/24 05:29 09/28/24 05:29 Lab Results-Last 24 Hrs: Lab Results-Last 24 Hours 09/27/24 09/28/24 09/28/24 Range/Units 14:10 05:29 05:29 WBC 7.6 (3.98-10.04) x10^3/uL RBC 2.78 L (3.93-5.22) x10^6/uL Hgb 8.2 L (11.2-15.7) g/dL Hct 26.2 L (34.1-44.9) % MCV 94.2 (79.4-94.8) fL MCH 29.5 (25.6-32.2) pg MCHC 31.3 L (32.2-35.5) g/dL RDW 14.1 (11.7-14.4) % Plt Count 273 (182-369) x10^3/uL MPV 9.2 L (9.4-12.3) fL Gran % 66.1 (34.0-71.1) % Immature Gran % (Auto) 0.4 (0.001-0.429) % Nucleat RBC Rel Count 0.0 (0.00-0.2) % Eos # (Auto) 0.22 (0.04-0.36) x10^3/uL Immature Gran # (Auto) 0.03 (0.001-0.031) x10^3u/L Absolute Lymphs (auto) 1.82 (1.18-3.74) x10^3/uL Absolute Monos (auto) 0.46 (0.24-0.86) x10^3/uL Absolute Nucleated RBC 0.00 (0.00-0.012) x10^3u/L Lymphocytes % 24.0 (19.3-51.7) % Monocytes % 6.1 (4.7-12.5) % Eosinophils % 2.9 (0.7-5.8) % Basophils % 0.5 (0.1-1.2) % Absolute Granulocytes 5.00 (1.56-6.13) x10^3/uL Basophils # 0.04 (0.01-0.08) x10^3/uL Sodium 135 (135-145) mmol/L Potassium 3.6 4.0 (3.5-5.1) mmol/L Chloride 108 H (98-107) mmol/L Carbon Dioxide 25 (22-30) mmol/L Anion Gap 6.5 (5-15) MEQ/L BUN 14 (7-17) mg/dL Creatinine 0.66 (0.52-1.04) mg/dL Estimated GFR 92.6 ML/MIN Glucose 112 H (74-106) mg/dL Calcium 8.9 (8.4-10.2) mg/dL Magnesium 1.9 (1.6-2.3) mg/dL Total Bilirubin 0.20 (0.2-1.3) mg/dL AST 30 (14-36) U/L ALT 21 (0-35) U/L Alkaline Phosphatase 51 (38-126) U/L Serum Total Protein 5.6 L (6.3-8.2) g/dL Albumin 3.1 L (3.5-5.0) g/dL Discharge Exam General Appearance: no apparent distress Neurologic Exam: alert, oriented x 3, cooperative Eye Exam: PERRL Ears, Nose, Throat Exam: normal ENT inspection, other (Rhino rocket left nostril) Neck Exam: normal inspection Respiratory Exam: normal breath sounds, lungs clear Cardiovascular Exam: regular rate/rhythm, normal heart sounds Gastrointestinal/Abdomen Exam: soft, normal bowel sounds Pelvic Exam: deferred Rectal Exam: deferred Back Exam: normal inspection Extremity Exam: normal inspection Skin Exam: normal color Final Diagnosis/Problem List - Final Discharge Diagnosis/Problem (1) Hypotension Current Visit: Yes Status: Resolved Code(s): I95.9 - HYPOTENSION, UNSPECIFIED (2) HTN (hypertension) Current Visit: Yes Status: Chronic Code(s): I10 - ESSENTIAL (PRIMARY) HYPERTENSION (3) Epistaxis Current Visit: Yes Status: Resolved Code(s): R04.0 - EPISTAXIS (4) History of CVA (cerebrovascular accident) Current Visit: Yes Status: Chronic Code(s): Z86.73 - PRSNL HX OF TIA (TIA), AND CEREB INFRC W/O RESID DEFICITS (5) Anemia Current Visit: Yes Status: Chronic Code(s): D64.9 - ANEMIA, UNSPECIFIED - Discharge Disposition: Home, Self-Care Condition: Stable Prescriptions: Continue Metoprolol Tartrate 25 mg [Lopressor 25MG Tab] 50 mg PO BID Ezetimibe 10 mg [Zetia 10 MG] 10 mg PO DAILY Alendronate Sodium 70 mg [Fosamax 70 MG] 70 mg PO Q7D@0600 Amox Tr/Potass Clav. 875 mg [Augmentin 875-125 Tablet] 875 mg PO BID 5 Days #10 tablet Ferrous Sulfate [Iron] 325 mg PO DAILY Trazodone HCl 50 mg [Desyrel 50 mg] 50 mg PO HS Atorvastatin Calcium [Lipitor] 20 mg PO EVENING MEAL Levothyroxine Sodium [Synthroid] 163 mcg PO BREAKFAST Ergocalciferol (Vitamin D2) [Vitamin D2] 1,250 mcg PO UD Escitalopram Oxalate [Lexapro] 10 mg PO DAILY Discontinued Losartan Potassium [Cozaar] 100 mg PO DAILY Clopidogrel Bisulfate [PLAVIX Tablet] 75 mg PO DAILY Furosemide 40 mg [Lasix 40 MG] 40 mg PO DAILY Additional Instructions: -Continue to hold lasix/losartan -Resume metoprolol -Keep Blood pressure/HR log -Monitor weight daily if your weight goes up by more than 2-3 pounds in one day or by 5 lbs over a week - contact cardiology regarding resumption of lasix Follow up with: RIANNA VILLATORO [Primary Care Provider] - 10/02/24 9:30 am
[2024-09-28] MEDS: Lexapro PO SCH (10:25)
[2024-09-28] MEDS: FEOSOL 325 MG PO SCH (10:25)
--- NOTE | 2024-09-28 10:33 | PCM.DCORD ---
- Discharge Disposition: Home, Self-Care Condition: Stable Prescriptions: Continue Metoprolol Tartrate 25 mg [Lopressor 25MG Tab] 50 mg PO BID Ezetimibe 10 mg [Zetia 10 MG] 10 mg PO DAILY Alendronate Sodium 70 mg [Fosamax 70 MG] 70 mg PO Q7D@0600 Amox Tr/Potass Clav. 875 mg [Augmentin 875-125 Tablet] 875 mg PO BID 5 Days #10 tablet Ferrous Sulfate [Iron] 325 mg PO DAILY Trazodone HCl 50 mg [Desyrel 50 mg] 50 mg PO HS Atorvastatin Calcium [Lipitor] 20 mg PO EVENING MEAL Levothyroxine Sodium [Synthroid] 163 mcg PO BREAKFAST Ergocalciferol (Vitamin D2) [Vitamin D2] 1,250 mcg PO UD Escitalopram Oxalate [Lexapro] 10 mg PO DAILY Discontinued Losartan Potassium [Cozaar] 100 mg PO DAILY Clopidogrel Bisulfate [PLAVIX Tablet] 75 mg PO DAILY Furosemide 40 mg [Lasix 40 MG] 40 mg PO DAILY Instructions: Nosebleeds, Anemia caused by low iron Additional Instructions: -Continue to hold lasix/losartan -Resume metoprolol -Keep Blood pressure/HR log -Monitor weight daily if your weight goes up by more than 2-3 pounds in one day or by 5 lbs over a week - contact cardiology regarding resumption of lasix Follow up with: RIANNA VILLATORO [Primary Care Provider] - 10/02/24 9:30 am
[2024-09-28 11:42] VITALS: BP 135/70; PULSE 65; TEMP 97.7; O2SAT 95
[2024-09-30] MEDS ORDERED: VITAMIN D2 PO SCH (01:00)
== END 2024-09-28 11:36 | disposition home or self-care (01) ==
LOC: ED 13:15 → MED SURG 21:40
PROVIDERS: ADMIT Internal Medicine; ATTEND Internal Medicine
DX: I95.9 Hypotension, unspecified (principal); I10 Essential (primary) hypertension; R04.0 Epistaxis; Z86.73 Personal history of transient ischemic attack (TIA), and cerebral infarction without residual deficits; D64.9 Anemia, unspecified; R42 Dizziness and giddiness; F32.A Depression, unspecified; E03.9 Hypothyroidism, unspecified; E87.6 Hypokalemia; Z79.01 Long term (current) use of anticoagulants; Z79.899 Other long term (current) drug therapy; Z85.850 Personal history of malignant neoplasm of thyroid; Z85.3 Personal history of malignant neoplasm of breast
CPT/HCPCS: 36415; 80048; 80053; 81001; 83735; 83880; 84132; 84484; 85025; 85027; 85610; 93005; 93041; 94760; 96360; 99285; A9270-GY